=== PATIENT | male | born 1955 | race Caucasian/White ===

== ENCOUNTER 2017-05-13 17:25 | Observation (INO) | payer MEDICARE, SELFPAY ==
[~2017-05-13] VITALS: Ht 177.8 cm; Wt 128.0 kg
[~2017-05-13 17:25] MED LIST: ASPI81CH PO; ATEN25 PO; ATEN50 PO; ATENOLOL; BLOOD PRESSURE MED; Bactrim Ds Tab1 EACH PO; CIPR500 PO; CLON1 PO; CYCL10 PO; Cipro500 MG PO; DIAZ5 PO; DIPATR PO; ENALAPRIL; FISH1000 PO; Flomax0.4 MG PO; GABA300; GABA300 PO; GLIP10 PO; GLIP5 PO; GLUCOPHAGE; HYDACE10B PO; HYDACE5 PO; HYDACE5325 PO; HYDCHL25 PO; HYDMOR2 PO; HYDRA50 PO; Hygroton50 MG PO; INSULANPEN SC; KETO10 PO; Klonopin PO; LISHYD2012 PO; LISI20 PO; LISI5 PO; LISINOPRIL/HCTZ; LOVA20 PO; LOVASTATIN; MELO7.5; METF500 PO; METF500C PO; METO50 PO; METOPROLOL; NEBI10 PO; Novolog100 UNIT/1 SC; OMEP20ER PO; ONDA4 PO; OXYACE5T PO; OXYACE7.5T PO; OXYCONTIN; POTCHL10ER; POTCIT10; POTCIT10 PO; PRED20 PO; PROC10 PO; PROM25 PO; Percocet 5-3251 EACH PO; SERT100 PO; TAMS.4ER PO; TRAM50; TRAM50 PO; TRAZ50 PO; TRESIBA FL100 UNIT/1; Ultram50 MG PO; [UNRECOGNIZED DRUG - OTHER]; [UNRECOGNIZED DRUG - OTHER]; metformin
[2017-05-13 18:46] LABS: BASOPHILS ABSOLUTE AUTO 0.02 K/mm3 (0.00-0.23); BASOPHILS PERCENT AUTO 0 % (0-2); EOSINOPHILS ABSOLUTE AUTO 0.63 K/mm3 (0.00-0.68); EOSINOPHILS PERCENT AUTO 6 % (0-6); Hematocrit 39.4 % (37.0-53.0); IMMATURE GRAN ABSOLUTE AUTO 0.06 K/mm3 (0.00-0.10); IMMATURE GRAN PERCENT AUTO 1 % (0-1); LYMPHOCYTES ABSOLUTE AUTO 2.42 K/mm3 (0.84-5.20); LYMPHOCYTES PERCENT AUTO 22 % (21-46); MONOCYTES ABSOLUTE AUTO 0.94 K/mm3 (0.16-1.47); MONOCYTES PERCENT AUTO 9 % (4-13); Mean Corpuscular HGB 28.9 pg (26.0-34.0); Mean Corpuscular Volume 88 fL (80-100); Mean Platelet Volume 9.3 fL (9.1-12.4); NEUTROPHILS ABSOLUTE AUTO 6.94 K/mm3 (1.96-9.15); NEUTROPHILS PERCENT AUTO 63 % (41-73); Platelet Count 414 K/mm3 (150-400); RDW Coefficient Variation 13.1 % (11.7-14.2); RDW Standard Deviation 42.4 fL (35.1-46.3); White Blood Cell Count 11.01 K/mm3 (4.00-11.30)
[2017-05-13 18:47] LABS: Source, Urine Clean Catch
[2017-05-13] MEDS ORDERED: TRESIBA FL100 UNIT/1 SC (18:48)
[2017-05-13 18:55] LABS: Appearance, Urine Clear (Clear); Bilirubin, Urine Neg (Neg); Blood, Urine Neg (Neg); Color, Urine Yellow (P-Yellow); Glucose Qualitative, Urine Neg (Neg); Ketones, Urine Neg (Neg); Leukocyte Esterase, Urine Neg (Neg); Nitrite, Urine Neg (Neg); Protein, Urine Neg (Neg); Specific Gravity, Urine 1.015 (1.003-1.022); Urobilinogen, Urine NORM (Normal)
[2017-05-13 19:00] LABS: Alanine Aminotransfer (ALT/SGP 29 U/L (12-78); Albumin, Blood 3.4 g/dL (3.4-5.0); Albumin/Globulin Ratio 0.8 (0.8-1.8); Alk Phos 101 U/L (50-136); Anion Gap 12 mmol/L (6-16); Aspartate Aminotrans (AST/SGOT 12 U/L (12-37); Bilirubin, Total 0.2 mg/dL (0.1-1.0); Blood Urea Nitrogen 15 mg/dL (8-24); CO2, Blood 22 mmol/L (21-32); Calcium, Blood 8.9 mg/dL (8.5-10.1); Chloride, Blood 105 mmol/L (98-108); Globulin, Blood 4.3 g/dL (2.2-4.0); Glomerular Filtration Rate >60 (60-); Glucose, Blood 117 mg/dL (70-99); Potassium, Blood 3.4 mmol/L (3.5-5.5); Sodium, Blood 139 mmol/L (136-145); Total Protein, Blood 7.7 g/dL (6.4-8.2); Troponin I <0.015 ng/mL (0.000-0.040)
[2017-05-13 20:34] LABS: U Amphetamine Screen Not Detected; U Barbituate Screen Not Detected; U Benzodiazapine Screen Not Detected; U Buprenorphine Screen Not Detected; U Cannabinoids Screen Not Detected; U Cocaine Screen Not Detected; U Methadone Screen Not Detected; U Methamphetamine Screen Not Detected; U Opiates Screen DETECTED; U Oxycodone Screen Not Detected; U Phencyclidine Screen Not Detected; U Propoxyphene Screen Not Detected
[2017-05-14 04:34] LABS: BASOPHILS ABSOLUTE AUTO 0.01 K/mm3 (0.00-0.23); BASOPHILS PERCENT AUTO 0 % (0-2); EOSINOPHILS ABSOLUTE AUTO 0.74 K/mm3 (0.00-0.68); EOSINOPHILS PERCENT AUTO 7 % (0-6); Hematocrit 37.9 % (37.0-53.0); Hemoglobin 12.4 g/dL (13.5-17.5); IMMATURE GRAN ABSOLUTE AUTO 0.05 K/mm3 (0.00-0.10); IMMATURE GRAN PERCENT AUTO 1 % (0-1); LYMPHOCYTES ABSOLUTE AUTO 2.92 K/mm3 (0.84-5.20); LYMPHOCYTES PERCENT AUTO 27 % (21-46); MONOCYTES ABSOLUTE AUTO 0.96 K/mm3 (0.16-1.47); MONOCYTES PERCENT AUTO 9 % (4-13); Mean Corpuscular HGB 29.4 pg (26.0-34.0); Mean Corpuscular HGB Conc 32.7 g/dL (31.5-36.5); Mean Corpuscular Volume 90 fL (80-100); Mean Platelet Volume 9.1 fL (9.1-12.4); NEUTROPHILS ABSOLUTE AUTO 6.26 K/mm3 (1.96-9.15); NEUTROPHILS PERCENT AUTO 57 % (41-73); Platelet Count 390 K/mm3 (150-400); RDW Coefficient Variation 13.2 % (11.7-14.2); RDW Standard Deviation 43.2 fL (35.1-46.3); Red Blood Cell Count 4.22 M/mm3 (4.30-5.90); White Blood Cell Count 10.94 K/mm3 (4.00-11.30)
[2017-05-14 05:00] LABS: Alanine Aminotransfer (ALT/SGP 26 U/L (12-78); Albumin, Blood 3.2 g/dL (3.4-5.0); Albumin/Globulin Ratio 0.8 (0.8-1.8); Alk Phos 91 U/L (50-136); Anion Gap 8 mmol/L (6-16); Aspartate Aminotrans (AST/SGOT 11 U/L (12-37); Bilirubin, Total 0.3 mg/dL (0.1-1.0); Blood Urea Nitrogen 13 mg/dL (8-24); Bun/Creatinine Ratio 10.8 (12.0-20.0); CO2, Blood 27 mmol/L (21-32); Calcium, Blood 8.7 mg/dL (8.5-10.1); Chloride, Blood 106 mmol/L (98-108); Globulin, Blood 3.9 g/dL (2.2-4.0); Glomerular Filtration Rate >60 (60-); Glucose, Blood 93 mg/dL (70-99); Potassium, Blood 3.4 mmol/L (3.5-5.5); Sodium, Blood 141 mmol/L (136-145); Total Protein, Blood 7.1 g/dL (6.4-8.2)
[2017-05-15 04:03] LABS: BASOPHILS ABSOLUTE AUTO 0.03 K/mm3 (0.00-0.23); BASOPHILS PERCENT AUTO 0 % (0-2); EOSINOPHILS ABSOLUTE AUTO 0.77 K/mm3 (0.00-0.68); EOSINOPHILS PERCENT AUTO 7 % (0-6); Hematocrit 36.3 % (37.0-53.0); IMMATURE GRAN ABSOLUTE AUTO 0.07 K/mm3 (0.00-0.10); IMMATURE GRAN PERCENT AUTO 1 % (0-1); LYMPHOCYTES ABSOLUTE AUTO 2.79 K/mm3 (0.84-5.20); LYMPHOCYTES PERCENT AUTO 25 % (21-46); MONOCYTES ABSOLUTE AUTO 0.92 K/mm3 (0.16-1.47); MONOCYTES PERCENT AUTO 8 % (4-13); Mean Corpuscular HGB 29.3 pg (26.0-34.0); Mean Corpuscular HGB Conc 33.1 g/dL (31.5-36.5); Mean Corpuscular Volume 89 fL (80-100); Mean Platelet Volume 9.3 fL (9.1-12.4); NEUTROPHILS ABSOLUTE AUTO 6.56 K/mm3 (1.96-9.15); NEUTROPHILS PERCENT AUTO 59 % (41-73); Platelet Count 350 K/mm3 (150-400); RDW Coefficient Variation 13.2 % (11.7-14.2); RDW Standard Deviation 42.7 fL (35.1-46.3); Red Blood Cell Count 4.09 M/mm3 (4.30-5.90); White Blood Cell Count 11.14 K/mm3 (4.00-11.30)
[2017-05-15 04:24] LABS: Alanine Aminotransfer (ALT/SGP 22 U/L (12-78); Albumin, Blood 2.8 g/dL (3.4-5.0); Albumin/Globulin Ratio 0.8 (0.8-1.8); Alk Phos 83 U/L (50-136); Anion Gap 6 mmol/L (6-16); Aspartate Aminotrans (AST/SGOT 8 U/L (12-37); Bilirubin, Total 0.2 mg/dL (0.1-1.0); Blood Urea Nitrogen 16 mg/dL (8-24); Bun/Creatinine Ratio 13.6 (12.0-20.0); CO2, Blood 28 mmol/L (21-32); Calcium, Blood 8.3 mg/dL (8.5-10.1); Chloride, Blood 106 mmol/L (98-108); Creatinine, Blood 1.18 mg/dL (0.60-1.20); Globulin, Blood 3.7 g/dL (2.2-4.0); Glomerular Filtration Rate >60 (60-); Glucose, Blood 144 mg/dL (70-99); Potassium, Blood 3.4 mmol/L (3.5-5.5); Sodium, Blood 140 mmol/L (136-145); Total Protein, Blood 6.5 g/dL (6.4-8.2)
[2017-05-16 06:16] LABS: BASOPHILS ABSOLUTE AUTO 0.05 K/mm3 (0.00-0.23); BASOPHILS PERCENT AUTO 1 % (0-2); EOSINOPHILS ABSOLUTE AUTO 0.91 K/mm3 (0.00-0.68); EOSINOPHILS PERCENT AUTO 8 % (0-6); Hematocrit 38.3 % (37.0-53.0); Hemoglobin 12.6 g/dL (13.5-17.5); IMMATURE GRAN ABSOLUTE AUTO 0.08 K/mm3 (0.00-0.10); IMMATURE GRAN PERCENT AUTO 1 % (0-1); LYMPHOCYTES ABSOLUTE AUTO 3.03 K/mm3 (0.84-5.20); LYMPHOCYTES PERCENT AUTO 28 % (21-46); MONOCYTES ABSOLUTE AUTO 0.99 K/mm3 (0.16-1.47); MONOCYTES PERCENT AUTO 9 % (4-13); Mean Corpuscular HGB 29.4 pg (26.0-34.0); Mean Corpuscular HGB Conc 32.9 g/dL (31.5-36.5); Mean Corpuscular Volume 89 fL (80-100); Mean Platelet Volume 9.4 fL (9.1-12.4); NEUTROPHILS ABSOLUTE AUTO 5.73 K/mm3 (1.96-9.15); NEUTROPHILS PERCENT AUTO 53 % (41-73); Platelet Count 359 K/mm3 (150-400); RDW Coefficient Variation 13.2 % (11.7-14.2); Red Blood Cell Count 4.29 M/mm3 (4.30-5.90); White Blood Cell Count 10.79 K/mm3 (4.00-11.30)
[2017-05-16 06:36] LABS: Alanine Aminotransfer (ALT/SGP 20 U/L (12-78); Albumin/Globulin Ratio 0.8 (0.8-1.8); Alk Phos 84 U/L (50-136); Anion Gap 8 mmol/L (6-16); Aspartate Aminotrans (AST/SGOT 9 U/L (12-37); Bilirubin, Total 0.3 mg/dL (0.1-1.0); Blood Urea Nitrogen 17 mg/dL (8-24); Bun/Creatinine Ratio 16.5 (12.0-20.0); CO2, Blood 28 mmol/L (21-32); Calcium, Blood 8.8 mg/dL (8.5-10.1); Chloride, Blood 105 mmol/L (98-108); Creatinine, Blood 1.03 mg/dL (0.60-1.20); Globulin, Blood 3.8 g/dL (2.2-4.0); Glomerular Filtration Rate >60 (60-); Glucose, Blood 164 mg/dL (70-99); Potassium, Blood 3.7 mmol/L (3.5-5.5); Sodium, Blood 141 mmol/L (136-145); Total Protein, Blood 6.8 g/dL (6.4-8.2)
[2017-05-16] MEDS ORDERED: ASPI81CH PO (17:30)
[2017-05-16] MEDS ORDERED: AMLO10 PO (17:30)
[2017-05-16] MEDS ORDERED: PANT40 PO (17:31)
[2017-05-16] MEDS ORDERED: EXEN5PENI SC (17:31)
[2017-06-01] MEDS ORDERED: EXEN5PENI SC (13:37)
[2017-06-01] MEDS ORDERED: CYCL10 PO (13:49)
[2017-06-01] MEDS ORDERED: FISH OIL 1,0001 EAC1 PO (13:50)
[2017-06-01] MEDS ORDERED: ALBU90OI INH (13:51)
[2017-06-01] MEDS ORDERED: CHOL10002 PO (13:53)
[2017-06-27] MEDS ORDERED: LIVALO2 MG PO (10:39)
[2017-06-27] MEDS ORDERED: CARV25 PO (10:39)
[2017-06-27] MEDS ORDERED: METF500 PO (10:40)
[2017-06-27] MEDS ORDERED: Humalog100 UNIT/1 SC (10:40)
[2017-06-27] MEDS ORDERED: ONDA8 PO (10:41)
[2017-06-27] MEDS ORDERED: Norco 10-325 T1 EACH PO (10:43)
[2017-06-30] MEDS ORDERED: ACET325 PO (10:04)
[2017-06-30] MEDS ORDERED: LEVFLO500 PO (10:05)
[2018-01-23] MEDS ORDERED: CYCL10 PO (02:07)
== END 2017-05-16 17:47 | disposition home or self-care (01) ==
LOC: ER 17:25 → SURS 17:26
PROVIDERS: Emergency Medicine; Internal Medicine
DX: K80.20 Calculus of gallbladder without cholecystitis without obstruction (principal); E11.9 Type 2 diabetes mellitus without complications; I10 Essential (primary) hypertension; E66.01 Morbid (severe) obesity due to excess calories; G47.33 Obstructive sleep apnea (adult) (pediatric); J44.9 Chronic obstructive pulmonary disease, unspecified; F32.9 Major depressive disorder, single episode, unspecified; R13.10 Dysphagia, unspecified; Z88.8 Allergy status to other drugs, medicaments and biological substances; Z79.4 Long term (current) use of insulin; Z79.891 Long term (current) use of opiate analgesic; Z79.899 Other long term (current) drug therapy; Z90.49 Acquired absence of other specified parts of digestive tract; Z87.442 Personal history of urinary calculi; Z98.890 Other specified postprocedural states; Z79.84 Long term (current) use of oral hypoglycemic drugs; Z68.41 Body mass index [BMI] 40.0-44.9, adult
CPT/HCPCS: 36415; 74018; 74220; 74230; 76705; 80053; 81003; 82947; 83036; 83690; 84443; 84484; 85025; 92611; 93005; 93010; 94660; 94762; 96361; 96365; 96366; 96372; 96375; 99285; C9113; G0378; G8996; G8997; G8998; J1170; J1650; J2405; J2543; J7030

== ENCOUNTER 2017-05-24 00:22 | Emergency (ER) | payer MEDICARE, SELFPAY ==
[~2017-05-24] VITALS: Ht 177.8 cm; Wt 129.7 kg
[~2017-05-24 00:22] MED LIST changes: +AMLO10 PO; +EXEN5PENI SC; +PANT40 PO; +TRESIBA FL100 UNIT/1 SC
[2017-05-24 02:42] LABS: BASOPHILS ABSOLUTE AUTO 0.08 K/mm3 (0.00-0.23); BASOPHILS PERCENT AUTO 1 % (0-2); EOSINOPHILS ABSOLUTE AUTO 0.59 K/mm3 (0.00-0.68); EOSINOPHILS PERCENT AUTO 6 % (0-6); Hematocrit 37.3 % (37.0-53.0); Hemoglobin 12.5 g/dL (13.5-17.5); IMMATURE GRAN ABSOLUTE AUTO 0.03 K/mm3 (0.00-0.10); IMMATURE GRAN PERCENT AUTO 0 % (0-1); LYMPHOCYTES ABSOLUTE AUTO 2.95 K/mm3 (0.84-5.20); LYMPHOCYTES PERCENT AUTO 31 % (21-46); MONOCYTES ABSOLUTE AUTO 0.87 K/mm3 (0.16-1.47); MONOCYTES PERCENT AUTO 9 % (4-13); Mean Corpuscular HGB 29.4 pg (26.0-34.0); Mean Corpuscular HGB Conc 33.5 g/dL (31.5-36.5); Mean Corpuscular Volume 88 fL (80-100); Mean Platelet Volume 9.7 fL (9.1-12.4); NEUTROPHILS ABSOLUTE AUTO 4.99 K/mm3 (1.96-9.15); NEUTROPHILS PERCENT AUTO 53 % (41-73); Platelet Count 353 K/mm3 (150-400); RDW Standard Deviation 41.2 fL (35.1-46.3); Red Blood Cell Count 4.25 M/mm3 (4.30-5.90); White Blood Cell Count 9.51 K/mm3 (4.00-11.30)
[2017-05-24 03:00] LABS: Alanine Aminotransfer (ALT/SGP 25 U/L (12-78); Albumin, Blood 3.4 g/dL (3.4-5.0); Albumin/Globulin Ratio 0.8 (0.8-1.8); Alk Phos 86 U/L (50-136); Anion Gap 7 mmol/L (6-16); Aspartate Aminotrans (AST/SGOT 12 U/L (12-37); Bilirubin, Total 0.2 mg/dL (0.1-1.0); Blood Urea Nitrogen 22 mg/dL (8-24); CO2, Blood 27 mmol/L (21-32); Calcium, Blood 8.4 mg/dL (8.5-10.1); Chloride, Blood 105 mmol/L (98-108); Globulin, Blood 4.3 g/dL (2.2-4.0); Glomerular Filtration Rate >60 (60-); Glucose, Blood 156 mg/dL (70-99); Potassium, Blood 3.5 mmol/L (3.5-5.5); Sodium, Blood 139 mmol/L (136-145); Total Protein, Blood 7.7 g/dL (6.4-8.2)
[2017-06-01] MEDS ORDERED: EXEN5PENI SC (13:37)
[2017-06-01] MEDS ORDERED: CYCL10 PO (13:49)
[2017-06-01] MEDS ORDERED: FISH OIL 1,0001 EAC1 PO (13:50)
[2017-06-01] MEDS ORDERED: ALBU90OI INH (13:51)
[2017-06-01] MEDS ORDERED: CHOL10002 PO (13:53)
[2017-06-27] MEDS ORDERED: CARV25 PO (10:39)
[2017-06-27] MEDS ORDERED: LIVALO2 MG PO (10:39)
[2017-06-27] MEDS ORDERED: Humalog100 UNIT/1 SC (10:40)
[2017-06-27] MEDS ORDERED: METF500 PO (10:40)
[2017-06-27] MEDS ORDERED: ONDA8 PO (10:41)
[2017-06-27] MEDS ORDERED: Norco 10-325 T1 EACH PO (10:43)
[2017-06-30] MEDS ORDERED: ACET325 PO (10:04)
[2017-06-30] MEDS ORDERED: LEVFLO500 PO (10:05)
[2018-01-23] MEDS ORDERED: CYCL10 PO (02:07)
== END 2017-05-24 04:02 | disposition home or self-care (01) ==
LOC: ER 00:22
PROVIDERS: Emergency Medicine
DX: K59.00 Constipation, unspecified (principal); Z88.8 Allergy status to other drugs, medicaments and biological substances; Z79.899 Other long term (current) drug therapy; Z79.84 Long term (current) use of oral hypoglycemic drugs; Z79.4 Long term (current) use of insulin; Z79.82 Long term (current) use of aspirin; I10 Essential (primary) hypertension; F43.10 Post-traumatic stress disorder, unspecified; E11.9 Type 2 diabetes mellitus without complications
CPT/HCPCS: 36415; 80053; 83690; 85025; 96374; 99283; J2405

== ENCOUNTER 2017-05-31 03:36 | Emergency (ER) | payer MEDICARE, SELFPAY ==
[2017-05-31 06:16] LABS: Albumin, Blood 3.6 g/dL (3.4-5.0); Albumin/Globulin Ratio 0.8 (0.8-1.8); Bilirubin, Total 0.2 mg/dL (0.1-1.0); Bun/Creatinine Ratio 32.6 (12.0-20.0); Calcium, Blood 9.3 mg/dL (8.5-10.1); Creatinine, Blood 1.29 mg/dL (0.60-1.20); Globulin, Blood 4.4 g/dL (2.2-4.0); Potassium, Blood 3.3 mmol/L (3.5-5.5)
[2017-05-31 06:22] LABS: BASOPHILS ABSOLUTE AUTO 0.05 K/mm3 (0.00-0.23); BASOPHILS PERCENT AUTO 1 % (0-2); EOSINOPHILS ABSOLUTE AUTO 1.48 K/mm3 (0.00-0.68); EOSINOPHILS PERCENT AUTO 14 % (0-6); Hematocrit 37.6 % (37.0-53.0); Hemoglobin 12.4 g/dL (13.5-17.5); IMMATURE GRAN ABSOLUTE AUTO 0.03 K/mm3 (0.00-0.10); IMMATURE GRAN PERCENT AUTO 0 % (0-1); LYMPHOCYTES ABSOLUTE AUTO 1.97 K/mm3 (0.84-5.20); LYMPHOCYTES PERCENT AUTO 19 % (21-46); MONOCYTES PERCENT AUTO 8 % (4-13); Mean Corpuscular Volume 88 fL (80-100); Mean Platelet Volume 9.5 fL (9.1-12.4); NEUTROPHILS ABSOLUTE AUTO 6.29 K/mm3 (1.96-9.15); NEUTROPHILS PERCENT AUTO 59 % (41-73); Platelet Count 420 K/mm3 (150-400); RDW Coefficient Variation 12.9 % (11.7-14.2); RDW Standard Deviation 41.4 fL (35.1-46.3); Red Blood Cell Count 4.28 M/mm3 (4.30-5.90); White Blood Cell Count 10.62 K/mm3 (4.00-11.30)
[2017-06-01] MEDS ORDERED: EXEN5PENI SC (13:37)
[2017-06-01] MEDS ORDERED: CYCL10 PO (13:49)
[2017-06-01] MEDS ORDERED: FISH OIL 1,0001 EAC1 PO (13:50)
[2017-06-01] MEDS ORDERED: ALBU90OI INH (13:51)
[2017-06-01] MEDS ORDERED: CHOL10002 PO (13:53)
[2017-06-27] MEDS ORDERED: CARV25 PO (10:39)
[2017-06-27] MEDS ORDERED: LIVALO2 MG PO (10:39)
[2017-06-27] MEDS ORDERED: METF500 PO (10:40)
[2017-06-27] MEDS ORDERED: Humalog100 UNIT/1 SC (10:40)
[2017-06-27] MEDS ORDERED: ONDA8 PO (10:41)
[2017-06-27] MEDS ORDERED: Norco 10-325 T1 EACH PO (10:43)
[2017-06-30] MEDS ORDERED: ACET325 PO (10:04)
[2017-06-30] MEDS ORDERED: LEVFLO500 PO (10:05)
[2018-01-23] MEDS ORDERED: CYCL10 PO (02:07)
== END 2017-05-31 05:49 | disposition home or self-care (01) ==
LOC: ER 03:36
DX: R10.9 Unspecified abdominal pain (principal); R10.13 Epigastric pain; K82.8 Other specified diseases of gallbladder
CPT/HCPCS: 78227; 80053; 83690; 85025; 93005; 93010; 96361; 96374; 99283; A9537; J0295; J2405; J2805; J7030

== ENCOUNTER 2017-06-05 05:33 | Day surgery (SDC) | payer MEDICARE, SELFPAY ==
[~2017-06-05] VITALS: Ht 177.8 cm; Wt 128.8 kg
[~2017-06-05 05:33] MED LIST changes: +ALBU90OI INH; +CHOL10002; +FISH OIL 1,0001 EAC1 PO
== END 2017-06-05 23:07 | disposition home or self-care (01) ==
LOC: ORSCMMR 05:33 → ORD 08:00 → ORSCMMR 23:07
PROVIDERS: Internal Medicine Gastroenterology
PROC: 0DB88ZX Excision of Small Intestine, Via Natural or Artificial Opening Endoscopic, Diagnostic (ICD-10-PCS; principal; 2017-06-05 08:00)
PROC: 0DB68ZX Excision of Stomach, Via Natural or Artificial Opening Endoscopic, Diagnostic (ICD-10-PCS; principal; 2017-06-05 08:00)
PROC: 0DB48ZX Excision of Esophagogastric Junction, Via Natural or Artificial Opening Endoscopic, Diagnostic (ICD-10-PCS; principal; 2017-06-05 08:00)
PROC: 0DBN8ZX Excision of Sigmoid Colon, Via Natural or Artificial Opening Endoscopic, Diagnostic (ICD-10-PCS; principal; 2017-06-05 08:00)
PROC: 0D758ZZ Dilation of Esophagus, Via Natural or Artificial Opening Endoscopic (ICD-10-PCS; principal; 2017-06-05 08:00)
PROC: 0DBE8ZX Excision of Large Intestine, Via Natural or Artificial Opening Endoscopic, Diagnostic (ICD-10-PCS; principal; 2017-06-05 08:00)
DX: R13.14 Dysphagia, pharyngoesophageal phase (principal); K21.9 Gastro-esophageal reflux disease without esophagitis; R14.0 Abdominal distension (gaseous); D12.5 Benign neoplasm of sigmoid colon; K29.70 Gastritis, unspecified, without bleeding; Z86.010 Personal history of colon polyps; E11.9 Type 2 diabetes mellitus without complications; G47.33 Obstructive sleep apnea (adult) (pediatric); I10 Essential (primary) hypertension; E78.00 Pure hypercholesterolemia, unspecified; E66.01 Morbid (severe) obesity due to excess calories; Z68.41 Body mass index [BMI] 40.0-44.9, adult; Z79.899 Other long term (current) drug therapy; Z79.4 Long term (current) use of insulin
CPT/HCPCS: 82947; 88305; 88342; C1726; J2250; J2405; J3010; J7120

== ENCOUNTER 2017-06-23 22:57 | Emergency (ER) | payer MEDICARE, SELFPAY ==
[~2017-06-23] VITALS: Ht 177.8 cm; Wt 131.5 kg
[2017-06-23 23:26] LABS: BASOPHILS ABSOLUTE AUTO 0.03 K/mm3 (0.00-0.23); BASOPHILS PERCENT AUTO 0 % (0-2); EOSINOPHILS PERCENT AUTO 4 % (0-6); Hematocrit 35.8 % (37.0-53.0); Hemoglobin 11.8 g/dL (13.5-17.5); IMMATURE GRAN ABSOLUTE AUTO 0.02 K/mm3 (0.00-0.10); IMMATURE GRAN PERCENT AUTO 0 % (0-1); LYMPHOCYTES ABSOLUTE AUTO 2.55 K/mm3 (0.84-5.20); LYMPHOCYTES PERCENT AUTO 35 % (21-46); MONOCYTES ABSOLUTE AUTO 0.61 K/mm3 (0.16-1.47); MONOCYTES PERCENT AUTO 8 % (4-13); Mean Corpuscular HGB 29.4 pg (26.0-34.0); Mean Corpuscular Volume 89 fL (80-100); Mean Platelet Volume 9.6 fL (9.1-12.4); NEUTROPHILS ABSOLUTE AUTO 3.77 K/mm3 (1.96-9.15); NEUTROPHILS PERCENT AUTO 52 % (41-73); Platelet Count 416 K/mm3 (150-400); RDW Coefficient Variation 12.8 % (11.7-14.2); RDW Standard Deviation 42.2 fL (35.1-46.3); Red Blood Cell Count 4.01 M/mm3 (4.30-5.90); White Blood Cell Count 7.28 K/mm3 (4.00-11.30)
[2017-06-23 23:46] LABS: Alanine Aminotransfer (ALT/SGP 26 U/L (12-78); Albumin, Blood 3.3 g/dL (3.4-5.0); Albumin/Globulin Ratio 0.8 (0.8-1.8); Alk Phos 85 U/L (50-136); Anion Gap 7 mmol/L (6-16); Aspartate Aminotrans (AST/SGOT 15 U/L (12-37); Bilirubin, Total 0.2 mg/dL (0.1-1.0); Blood Urea Nitrogen 20 mg/dL (8-24); Bun/Creatinine Ratio 20.7 (12.0-20.0); CO2, Blood 29 mmol/L (21-32); Calcium, Blood 8.5 mg/dL (8.5-10.1); Chloride, Blood 106 mmol/L (98-108); Creatinine, Blood 0.97 mg/dL (0.60-1.20); Glomerular Filtration Rate >60 (60-); Glucose, Blood 180 mg/dL (70-99); Potassium, Blood 3.4 mmol/L (3.5-5.5); Sodium, Blood 142 mmol/L (136-145); Total Protein, Blood 7.3 g/dL (6.4-8.2); Troponin I <0.015 ng/mL (0.000-0.040)
[2017-06-24] MEDS ORDERED: Valium5 MG PO (01:37)
== END 2017-06-24 02:01 | disposition home or self-care (01) ==
LOC: ER 22:57
PROVIDERS: Emergency Medicine
DX: R07.89 Other chest pain (principal); E11.65 Type 2 diabetes mellitus with hyperglycemia; M62.830 Muscle spasm of back; I10 Essential (primary) hypertension; F41.0 Panic disorder [episodic paroxysmal anxiety]; Z87.442 Personal history of urinary calculi; Z88.8 Allergy status to other drugs, medicaments and biological substances; Z91.048 Other nonmedicinal substance allergy status; Z79.899 Other long term (current) drug therapy; Z79.4 Long term (current) use of insulin; Z79.82 Long term (current) use of aspirin
CPT/HCPCS: 36415; 71046; 80053; 84484; 85025; 93005; 93010; 96360; 99283; J7030

== ENCOUNTER 2017-06-29 07:11 | Day surgery (SDC) | payer MEDICARE, SELFPAY ==
[~2017-06-29] VITALS: Ht 177.8 cm; Wt 131.5 kg
[~2017-06-29 07:11] MED LIST changes: +CARV25 PO; -CHOL10002; +CHOL10002 PO; +Humalog100 UNIT/1 SC; +LIVALO2 MG PO; +Norco 10-325 T1 EACH PO; +ONDA8 PO; +Valium5 MG PO
[2017-06-30] MEDS ORDERED: ACET325 PO ×2 (10:04)
[2017-06-30] MEDS ORDERED: LEVFLO500 PO ×2 (10:05)
== END 2017-06-29 22:40 | disposition home or self-care (01) ==
LOC: ORSCMMR 07:11 → ORD 08:45 → ORSCMMR 22:40
PROVIDERS: Surgery
PROC: 0FT44ZZ Resection of Gallbladder, Percutaneous Endoscopic Approach (ICD-10-PCS; principal; 2017-06-29 08:45)
DX: K80.10 Calculus of gallbladder with chronic cholecystitis without obstruction (principal); K82.8 Other specified diseases of gallbladder; I10 Essential (primary) hypertension; G47.33 Obstructive sleep apnea (adult) (pediatric); K21.9 Gastro-esophageal reflux disease without esophagitis; K76.0 Fatty (change of) liver, not elsewhere classified; E78.00 Pure hypercholesterolemia, unspecified; E11.42 Type 2 diabetes mellitus with diabetic polyneuropathy; E66.01 Morbid (severe) obesity due to excess calories; Z68.41 Body mass index [BMI] 40.0-44.9, adult; Z79.899 Other long term (current) drug therapy; Z79.82 Long term (current) use of aspirin; Z79.4 Long term (current) use of insulin
CPT/HCPCS: 82947; 88304; C1729; J0690; J1100; J1885; J2250; J2405; J2710; J3010; J7120

== ENCOUNTER 2017-06-29 18:39 | Observation (INO) | payer MEDICARE, SELFPAY ==
[~2017-06-29] VITALS: Ht 177.8 cm; Wt 135.8 kg
[2017-06-29 19:02] LABS: BASOPHILS ABSOLUTE AUTO 0.01 K/mm3 (0.00-0.23); BASOPHILS PERCENT AUTO 0 % (0-2); EOSINOPHILS PERCENT AUTO 0 % (0-6); Hematocrit 36.2 % (37.0-53.0); IMMATURE GRAN ABSOLUTE AUTO 0.06 K/mm3 (0.00-0.10); IMMATURE GRAN PERCENT AUTO 0 % (0-1); LYMPHOCYTES ABSOLUTE AUTO 1.03 K/mm3 (0.84-5.20); LYMPHOCYTES PERCENT AUTO 7 % (21-46); MONOCYTES ABSOLUTE AUTO 0.34 K/mm3 (0.16-1.47); MONOCYTES PERCENT AUTO 2 % (4-13); Mean Corpuscular HGB 29.9 pg (26.0-34.0); Mean Corpuscular HGB Conc 33.1 g/dL (31.5-36.5); Mean Corpuscular Volume 90 fL (80-100); Mean Platelet Volume 9.7 fL (9.1-12.4); NEUTROPHILS ABSOLUTE AUTO 12.46 K/mm3 (1.96-9.15); NEUTROPHILS PERCENT AUTO 90 % (41-73); Platelet Count 446 K/mm3 (150-400); RDW Coefficient Variation 12.8 % (11.7-14.2); RDW Standard Deviation 42.1 fL (35.1-46.3); Red Blood Cell Count 4.02 M/mm3 (4.30-5.90)
[2017-06-29 19:26] LABS: Alanine Aminotransfer (ALT/SGP 30 U/L (12-78); Albumin, Blood 3.5 g/dL (3.4-5.0); Albumin/Globulin Ratio 0.9 (0.8-1.8); Alk Phos 95 U/L (50-136); Anion Gap 8 mmol/L (6-16); Aspartate Aminotrans (AST/SGOT 20 U/L (12-37); Bilirubin, Total 0.2 mg/dL (0.1-1.0); Blood Urea Nitrogen 30 mg/dL (8-24); Bun/Creatinine Ratio 15.9 (12.0-20.0); CO2, Blood 25 mmol/L (21-32); Calcium, Blood 8.4 mg/dL (8.5-10.1); Chloride, Blood 101 mmol/L (98-108); Creatinine, Blood 1.89 mg/dL (0.60-1.20); Glomerular Filtration Rate 39 (60-); Glucose, Blood 436 mg/dL (70-99); Potassium, Blood 4.4 mmol/L (3.5-5.5); Sodium, Blood 134 mmol/L (136-145); Total Protein, Blood 7.5 g/dL (6.4-8.2); Troponin I <0.015 ng/mL (0.000-0.040)
[2017-06-30 00:18] LABS: Bilirubin, Urine Neg (Neg); Blood, Urine Neg (Neg); Glucose Qualitative, Urine 4+ (Neg); Ketones, Urine 1+ (Neg); Leukocyte Esterase, Urine Neg (Neg); Nitrite, Urine Neg (Neg); Protein, Urine Neg (Neg); Source, Urine Clean Catch; Specific Gravity, Urine 1.005 (1.003-1.022); Urobilinogen, Urine NORM (Normal); pH, Urine 6.5 (5.0-8.0)
[2017-06-30 00:23] LABS: Appearance, Urine Clear (Clear); Color, Urine Yellow (P-Yellow)
[2017-06-30 04:53] LABS: BASOPHILS ABSOLUTE AUTO 0.01 K/mm3 (0.00-0.23); BASOPHILS PERCENT AUTO 0 % (0-2); EOSINOPHILS PERCENT AUTO 0 % (0-6); Hematocrit 33.6 % (37.0-53.0); Hemoglobin 11.4 g/dL (13.5-17.5); IMMATURE GRAN ABSOLUTE AUTO 0.09 K/mm3 (0.00-0.10); IMMATURE GRAN PERCENT AUTO 1 % (0-1); LYMPHOCYTES ABSOLUTE AUTO 1.97 K/mm3 (0.84-5.20); LYMPHOCYTES PERCENT AUTO 12 % (21-46); MONOCYTES ABSOLUTE AUTO 1.42 K/mm3 (0.16-1.47); MONOCYTES PERCENT AUTO 9 % (4-13); Mean Corpuscular HGB 29.2 pg (26.0-34.0); Mean Corpuscular HGB Conc 33.9 g/dL (31.5-36.5); NEUTROPHILS ABSOLUTE AUTO 13.08 K/mm3 (1.96-9.15); NEUTROPHILS PERCENT AUTO 79 % (41-73); RDW Coefficient Variation 12.9 % (11.7-14.2); White Blood Cell Count 16.57 K/mm3 (4.00-11.30)
[2017-06-30 04:55] LABS: Mean Corpuscular Volume 86 fL (80-100); Mean Platelet Volume 10.3 fL (9.1-12.4); Platelet Count 297 K/mm3 (150-400)
[2017-06-30 05:04] LABS: Albumin/Globulin Ratio 0.8 (0.8-1.8); Bilirubin, Total 0.2 mg/dL (0.1-1.0); Bun/Creatinine Ratio 18.8 (12.0-20.0); Calcium, Blood 8.3 mg/dL (8.5-10.1); Creatinine, Blood 1.44 mg/dL (0.60-1.20); Globulin, Blood 3.7 g/dL (2.2-4.0); Potassium, Blood 3.9 mmol/L (3.5-5.5); Total Protein, Blood 6.7 g/dL (6.4-8.2)
[2017-06-30 05:22] LABS: BASOPHILS ABSOLUTE MAN 16.57 K/mm3 (0.00-0.23); BASOPHILS PERCENT MAN 100 % (0-2); EOSINOPHILS PERCENT MAN 0 % (0-6); MONOCYTES PERCENT MAN 0 % (4-13); TOTAL CELLS COUNTED 1
[2017-06-30] MEDS ORDERED: ACET325 PO ×2 (10:04)
[2017-06-30] MEDS ORDERED: LEVFLO500 PO ×2 (10:05)
== END 2017-06-30 11:02 | disposition home or self-care (01) ==
LOC: ER 18:39 → MEDS 18:40 → ENPENDDIS 06-30 09:52 → MEDS 06-30 11:02
PROVIDERS: Emergency Medicine; Internal Medicine
DX: J98.11 Atelectasis (principal); E11.9 Type 2 diabetes mellitus without complications; I10 Essential (primary) hypertension; G47.33 Obstructive sleep apnea (adult) (pediatric); E66.01 Morbid (severe) obesity due to excess calories; G89.29 Other chronic pain; M54.9 Dorsalgia, unspecified; F41.0 Panic disorder [episodic paroxysmal anxiety]; F43.10 Post-traumatic stress disorder, unspecified; Z87.442 Personal history of urinary calculi; Z90.49 Acquired absence of other specified parts of digestive tract; Z88.8 Allergy status to other drugs, medicaments and biological substances; Z79.899 Other long term (current) drug therapy; Z79.82 Long term (current) use of aspirin; Z68.41 Body mass index [BMI] 40.0-44.9, adult
CPT/HCPCS: 36415; 71045; 71260; 74177; 80053; 81003; 82947; 84484; 85025; 93005; 93010; 94660; 94762; 96372; 96376; 99285; G0378; J1650; J2060; J3010; Q9967

== ENCOUNTER 2017-07-07 19:39 | Emergency (ER) | payer MEDICARE, SELFPAY ==
[~2017-07-07] VITALS: Ht 177.8 cm; Wt 127.0 kg
[~2017-07-07 19:39] MED LIST changes: +ACET325 PO; +LEVFLO500 PO
[2017-07-07 20:10] LABS: BASOPHILS ABSOLUTE AUTO 0.05 K/mm3 (0.00-0.23); BASOPHILS PERCENT AUTO 1 % (0-2); EOSINOPHILS PERCENT AUTO 4 % (0-6); Hemoglobin 12.4 g/dL (13.5-17.5); IMMATURE GRAN ABSOLUTE AUTO 0.02 K/mm3 (0.00-0.10); IMMATURE GRAN PERCENT AUTO 0 % (0-1); LYMPHOCYTES ABSOLUTE AUTO 2.49 K/mm3 (0.84-5.20); LYMPHOCYTES PERCENT AUTO 26 % (21-46); MONOCYTES ABSOLUTE AUTO 0.77 K/mm3 (0.16-1.47); MONOCYTES PERCENT AUTO 8 % (4-13); Mean Corpuscular HGB Conc 32.6 g/dL (31.5-36.5); Mean Platelet Volume 9.3 fL (9.1-12.4); NEUTROPHILS ABSOLUTE AUTO 5.94 K/mm3 (1.96-9.15); NEUTROPHILS PERCENT AUTO 62 % (41-73); Platelet Count 410 K/mm3 (150-400); RDW Coefficient Variation 12.8 % (11.7-14.2); RDW Standard Deviation 41.8 fL (35.1-46.3); Red Blood Cell Count 4.27 M/mm3 (4.30-5.90); White Blood Cell Count 9.67 K/mm3 (4.00-11.30)
[2017-07-07 20:13] LABS: Mean Corpuscular Volume 89 fL (80-100)
[2017-07-07 20:35] LABS: Alanine Aminotransfer (ALT/SGP 23 U/L (12-78); Albumin, Blood 3.7 g/dL (3.4-5.0); Albumin/Globulin Ratio 0.9 (0.8-1.8); Alk Phos 108 U/L (50-136); Anion Gap 7 mmol/L (6-16); Aspartate Aminotrans (AST/SGOT 14 U/L (12-37); Bilirubin, Total 0.3 mg/dL (0.1-1.0); Blood Urea Nitrogen 23 mg/dL (8-24); Bun/Creatinine Ratio 18.4 (12.0-20.0); CO2, Blood 27 mmol/L (21-32); Calcium, Blood 8.8 mg/dL (8.5-10.1); Chloride, Blood 109 mmol/L (98-108); Creatinine, Blood 1.25 mg/dL (0.60-1.20); Globulin, Blood 4.2 g/dL (2.2-4.0); Glomerular Filtration Rate >60 (60-); Glucose, Blood 111 mg/dL (70-99); Potassium, Blood 3.5 mmol/L (3.5-5.5); Sodium, Blood 143 mmol/L (136-145); Total Protein, Blood 7.9 g/dL (6.4-8.2); Troponin I <0.015 ng/mL (0.000-0.040)
[2017-07-07 20:48] LABS: Source, Urine Clean Catch
[2017-07-07 20:52] LABS: Appearance, Urine Clear (Clear); Bilirubin, Urine Neg (Neg); Blood, Urine Neg (Neg); Color, Urine Yellow (P-Yellow); Glucose Qualitative, Urine Neg (Neg); Ketones, Urine Neg (Neg); Leukocyte Esterase, Urine Neg (Neg); Nitrite, Urine Neg (Neg); Protein, Urine Neg (Neg); Urobilinogen, Urine NORM (Normal)
[2017-07-07] MEDS ORDERED: ZYRTEC10 M1 PO (20:59)
[2017-07-07] MEDS ORDERED: Prednisone20 MG PO (20:59)
== END 2017-07-07 21:25 | disposition home or self-care (01) ==
LOC: ER 19:39
PROVIDERS: Emergency Medicine
DX: J98.01 Acute bronchospasm (principal); Z88.8 Allergy status to other drugs, medicaments and biological substances; Z88.1 Allergy status to other antibiotic agents; Z91.048 Other nonmedicinal substance allergy status; Z79.4 Long term (current) use of insulin; Z79.899 Other long term (current) drug therapy; Z79.82 Long term (current) use of aspirin; I10 Essential (primary) hypertension; F43.10 Post-traumatic stress disorder, unspecified; E11.9 Type 2 diabetes mellitus without complications
CPT/HCPCS: 36415; 71046; 80053; 81003; 83880; 84484; 85025; 93005; 93010; 99283

== ENCOUNTER 2017-09-22 23:13 | Emergency (ER) | payer OTHER, MEDICARE, SELFPAY ==
[~2017-09-22] VITALS: Ht 175.3 cm; Wt 125.2 kg
[~2017-09-22 23:13] MED LIST changes: +Prednisone20 MG PO; +ZYRTEC10 M1 PO
[2017-09-23 00:26] LABS: BASOPHILS ABSOLUTE AUTO 0.03 K/mm3 (0.00-0.23); BASOPHILS PERCENT AUTO 0 % (0-2); EOSINOPHILS PERCENT AUTO 3 % (0-6); Hematocrit 36.5 % (37.0-53.0); Hemoglobin 12.1 g/dL (13.5-17.5); IMMATURE GRAN ABSOLUTE AUTO 0.04 K/mm3 (0.00-0.10); IMMATURE GRAN PERCENT AUTO 0 % (0-1); LYMPHOCYTES ABSOLUTE AUTO 1.96 K/mm3 (0.84-5.20); LYMPHOCYTES PERCENT AUTO 19 % (21-46); MONOCYTES ABSOLUTE AUTO 0.86 K/mm3 (0.16-1.47); MONOCYTES PERCENT AUTO 8 % (4-13); Mean Corpuscular HGB 28.7 pg (26.0-34.0); Mean Corpuscular HGB Conc 33.2 g/dL (31.5-36.5); Mean Corpuscular Volume 87 fL (80-100); Mean Platelet Volume 9.5 fL (9.1-12.4); NEUTROPHILS ABSOLUTE AUTO 7.31 K/mm3 (1.96-9.15); NEUTROPHILS PERCENT AUTO 70 % (41-73); Platelet Count 386 K/mm3 (150-400); RDW Coefficient Variation 12.9 % (11.7-14.2); RDW Standard Deviation 40.6 fL (35.1-46.3); Red Blood Cell Count 4.22 M/mm3 (4.30-5.90)
[2017-09-23 00:42] LABS: Alanine Aminotransfer (ALT/SGP 94 U/L (12-78); Albumin, Blood 3.3 g/dL (3.4-5.0); Albumin/Globulin Ratio 0.8 (0.8-1.8); Alk Phos 122 U/L (50-136); Anion Gap 8 mmol/L (6-16); Aspartate Aminotrans (AST/SGOT 42 U/L (12-37); Bilirubin, Total 0.3 mg/dL (0.1-1.0); Blood Urea Nitrogen 24 mg/dL (8-24); Bun/Creatinine Ratio 20.9 (12.0-20.0); CO2, Blood 26 mmol/L (21-32); Calcium, Blood 8.4 mg/dL (8.5-10.1); Chloride, Blood 104 mmol/L (98-108); Creatinine, Blood 1.15 mg/dL (0.60-1.20); Glomerular Filtration Rate >60 (60-); Glucose, Blood 133 mg/dL (70-99); Potassium, Blood 3.8 mmol/L (3.5-5.5); Sodium, Blood 138 mmol/L (136-145); Total Protein, Blood 7.3 g/dL (6.4-8.2); Troponin I <0.015 ng/mL (0.000-0.040)
== END 2017-09-23 01:56 | disposition home or self-care (01) ==
LOC: ER 23:13
PROVIDERS: Emergency Medicine
DX: G89.18 Other acute postprocedural pain (principal); R07.81 Pleurodynia; R06.00 Dyspnea, unspecified; Z88.8 Allergy status to other drugs, medicaments and biological substances; Z88.1 Allergy status to other antibiotic agents; Z91.048 Other nonmedicinal substance allergy status; Z79.899 Other long term (current) drug therapy; Z79.4 Long term (current) use of insulin; Z79.84 Long term (current) use of oral hypoglycemic drugs; Z79.82 Long term (current) use of aspirin; Z79.52 Long term (current) use of systemic steroids; I10 Essential (primary) hypertension; F43.10 Post-traumatic stress disorder, unspecified; E11.9 Type 2 diabetes mellitus without complications
CPT/HCPCS: 36415; 71046; 80053; 84484; 85025; 93005; 93010; 96374; 99285-25; J3010

== ENCOUNTER 2017-09-30 14:00 | Emergency (ER) | payer OTHER, MEDICARE, SELFPAY ==
[~2017-09-30] VITALS: Ht 177.8 cm; Wt 125.2 kg
[2017-09-30] MEDS ORDERED: Norco 5-325 Ta1 EACH PO (15:10)
== END 2017-09-30 15:21 | disposition home or self-care (01) ==
LOC: ER 14:00
DX: G89.18 Other acute postprocedural pain (principal); R07.89 Other chest pain; I10 Essential (primary) hypertension; E11.9 Type 2 diabetes mellitus without complications; F41.0 Panic disorder [episodic paroxysmal anxiety]; Z88.8 Allergy status to other drugs, medicaments and biological substances; Z88.1 Allergy status to other antibiotic agents; Z91.048 Other nonmedicinal substance allergy status; Z79.4 Long term (current) use of insulin; Z79.899 Other long term (current) drug therapy; Z79.82 Long term (current) use of aspirin; Z87.442 Personal history of urinary calculi
CPT/HCPCS: 71046; 99282-25

== ENCOUNTER 2017-10-21 22:03 | Emergency (ER) | payer MEDICARE, SELFPAY ==
[~2017-10-21] VITALS: Ht 177.8 cm; Wt 126.5 kg
[~2017-10-21 22:03] MED LIST changes: +Norco 5-325 Ta1 EACH PO
[2017-10-23] MEDS ORDERED: CYCL10 PO (08:56)
[2017-10-23] MEDS ORDERED: Norco 10-325 T1 EACH PO (08:56)
[2017-10-23] MEDS ORDERED: Naprosyn500 MG PO (08:56)
== END 2017-10-22 01:46 | disposition left against medical advice (07) ==
LOC: ER 22:03
DX: Z53.21 Procedure and treatment not carried out due to patient leaving prior to being seen by health care provider (principal)
CPT/HCPCS: 99281

== ENCOUNTER 2017-10-23 07:11 | Emergency (ER) | payer MEDICARE, SELFPAY ==
[~2017-10-23] VITALS: Ht 177.8 cm; Wt 126.1 kg
[2017-10-23] MEDS ORDERED: CYCL10 PO (08:56)
[2017-10-23] MEDS ORDERED: Naprosyn500 MG PO (08:56)
[2017-10-23] MEDS ORDERED: Norco 10-325 T1 EACH PO (08:56)
== END 2017-10-23 09:00 | disposition home or self-care (01) ==
LOC: ER 07:11
DX: S16.1XXA Strain of muscle, fascia and tendon at neck level, initial encounter (principal); I10 Essential (primary) hypertension; E11.9 Type 2 diabetes mellitus without complications; Z88.8 Allergy status to other drugs, medicaments and biological substances; Z88.1 Allergy status to other antibiotic agents; Z91.048 Other nonmedicinal substance allergy status; Z79.899 Other long term (current) drug therapy; Z79.4 Long term (current) use of insulin; Z79.82 Long term (current) use of aspirin; Z87.442 Personal history of urinary calculi; V89.2XXA Person injured in unspecified motor-vehicle accident, traffic, initial encounter
CPT/HCPCS: 72040; 99283-25

== ENCOUNTER 2018-03-18 12:50 | Emergency (ER) | payer MEDICARE, OTHER ==
[~2018-03-18] VITALS: Ht 177.8 cm; Wt 121.6 kg
[~2018-03-18 12:50] MED LIST changes: +Naprosyn500 MG PO
[2018-03-18 13:33] LABS: BASOPHILS ABSOLUTE AUTO 0.05 K/mm3 (0.00-0.23); BASOPHILS PERCENT AUTO 0 % (0-2); EOSINOPHILS ABSOLUTE AUTO 0.16 K/mm3 (0.00-0.68); EOSINOPHILS PERCENT AUTO 1 % (0-6); Hematocrit 37.8 % (37.0-53.0); Hemoglobin 12.1 g/dL (13.5-17.5); IMMATURE GRAN ABSOLUTE AUTO 0.06 K/mm3 (0.00-0.10); IMMATURE GRAN PERCENT AUTO 1 % (0-1); LYMPHOCYTES ABSOLUTE AUTO 1.95 K/mm3 (0.84-5.20); LYMPHOCYTES PERCENT AUTO 16 % (21-46); MONOCYTES ABSOLUTE AUTO 0.79 K/mm3 (0.16-1.47); MONOCYTES PERCENT AUTO 6 % (4-13); Mean Corpuscular HGB 28.9 pg (26.0-34.0); Mean Corpuscular Volume 90 fL (80-100); Mean Platelet Volume 9.6 fL (9.1-12.4); NEUTROPHILS ABSOLUTE AUTO 9.35 K/mm3 (1.96-9.15); NEUTROPHILS PERCENT AUTO 76 % (41-73); Platelet Count 396 K/mm3 (150-400); RDW Coefficient Variation 13.1 % (11.7-14.2); RDW Standard Deviation 43.1 fL (35.1-46.3); Red Blood Cell Count 4.18 M/mm3 (4.30-5.90); White Blood Cell Count 12.36 K/mm3 (4.00-11.30)
[2018-03-18 14:00] LABS: Albumin, Blood 3.2 g/dL (3.4-5.0); Albumin/Globulin Ratio 0.8 (0.8-1.8); Bilirubin, Total 0.2 mg/dL (0.1-1.0); Bun/Creatinine Ratio 14.9 (12.0-20.0); Calcium, Blood 8.2 mg/dL (8.5-10.1); Creatinine, Blood 1.54 mg/dL (0.60-1.20); Globulin, Blood 3.8 g/dL (2.2-4.0)
== END 2018-03-18 15:31 | disposition home or self-care (01) ==
LOC: ER 12:50
PROVIDERS: Emergency Medicine
DX: R55 Syncope and collapse (principal); Z88.8 Allergy status to other drugs, medicaments and biological substances; Z88.1 Allergy status to other antibiotic agents; Z91.048 Other nonmedicinal substance allergy status; Z79.899 Other long term (current) drug therapy; Z79.4 Long term (current) use of insulin; Z79.82 Long term (current) use of aspirin; I10 Essential (primary) hypertension; F43.10 Post-traumatic stress disorder, unspecified; E11.9 Type 2 diabetes mellitus without complications; J44.9 Chronic obstructive pulmonary disease, unspecified; F32.9 Major depressive disorder, single episode, unspecified
CPT/HCPCS: 36415; 80053; 85025; 93005; 93010; 96360; 96361; 99284-25; J7030

== ENCOUNTER → 2018-04-02 | Outpatient (CLI) | payer MEDICARE, OTHER ==
[2018-04-02 17:43] LABS: U Amphetamine Screen Not Detected; U Barbituate Screen Not Detected; U Benzodiazapine Screen Not Detected; U Buprenorphine Screen Not Detected; U Cannabinoids Screen Not Detected; U Cocaine Screen Not Detected; U Methadone Screen Not Detected; U Methamphetamine Screen Not Detected; U Opiates Screen DETECTED; U Oxycodone Screen Not Detected; U Phencyclidine Screen Not Detected; U Propoxyphene Screen Not Detected
== END | disposition home or self-care (01) ==
LOC: LAB SHORT 10:38 → LAB 10:38
PROVIDERS: Internal Medicine
DX: Z51.81 Encounter for therapeutic drug level monitoring (principal); Z79.891 Long term (current) use of opiate analgesic
CPT/HCPCS: G0480

== ENCOUNTER 2018-10-22 22:09 | Observation (INO) | payer MEDICARE, OTHER ==
[~2018-10-22] VITALS: Ht 177.8 cm; Wt 104.5 kg
[~2018-10-22 22:09] MED LIST changes: -CHOL10002 PO; +VITAMIN D-32000 UNIT PO
[2018-10-22 22:50] LABS: BASOPHILS ABSOLUTE AUTO 0.06 K/mm3 (0.00-0.23); BASOPHILS PERCENT AUTO 1 % (0-2); EOSINOPHILS ABSOLUTE AUTO 0.19 K/mm3 (0.00-0.68); EOSINOPHILS PERCENT AUTO 2 % (0-6); Hematocrit 35.9 % (37.0-53.0); Hemoglobin 12.7 g/dL (13.5-17.5); IMMATURE GRAN ABSOLUTE AUTO 0.02 K/mm3 (0.00-0.10); IMMATURE GRAN PERCENT AUTO 0 % (0-1); LYMPHOCYTES ABSOLUTE AUTO 2.87 K/mm3 (0.84-5.20); LYMPHOCYTES PERCENT AUTO 29 % (21-46); MONOCYTES ABSOLUTE AUTO 0.81 K/mm3 (0.16-1.47); MONOCYTES PERCENT AUTO 8 % (4-13); Mean Corpuscular HGB Conc 35.4 g/dL (31.5-36.5); Mean Corpuscular Volume 88 fL (80-100); Mean Platelet Volume 9.9 fL (9.1-12.4); NEUTROPHILS ABSOLUTE AUTO 5.86 K/mm3 (1.96-9.15); NEUTROPHILS PERCENT AUTO 60 % (41-73); Platelet Count 345 K/mm3 (150-400); RDW Coefficient Variation 12.6 % (11.7-14.2); White Blood Cell Count 9.81 K/mm3 (4.00-11.30)
[2018-10-22 23:05] LABS: Troponin I <0.015 ng/mL (0.000-0.040)
[2018-10-22 23:16] LABS: Alanine Aminotransfer (ALT/SGP 39 U/L (12-78); Albumin, Blood 3.5 g/dL (3.4-5.0); Albumin/Globulin Ratio 0.9 (0.8-1.8); Alk Phos 100 U/L (50-136); Anion Gap 7 mmol/L (6-16); Aspartate Aminotrans (AST/SGOT 20 U/L (12-37); Bilirubin, Total 0.4 mg/dL (0.1-1.0); Blood Urea Nitrogen 25 mg/dL (8-24); Bun/Creatinine Ratio 21.2 (12.0-20.0); CO2, Blood 27 mmol/L (21-32); Calcium, Blood 8.1 mg/dL (8.5-10.1); Chloride, Blood 109 mmol/L (98-108); Creatinine, Blood 1.18 mg/dL (0.60-1.20); Globulin, Blood 3.8 g/dL (2.2-4.0); Glomerular Filtration Rate >60 (60-); Glucose, Blood 161 mg/dL (70-99); Potassium, Blood 3.7 mmol/L (3.5-5.5); Sodium, Blood 143 mmol/L (136-145); Total Protein, Blood 7.3 g/dL (6.4-8.2)
--- NOTE | 2018-10-23 05:12 | NUR ---
SHIFT SUMMARY PT ARRIVED TO THE FLOOR WITHOUT INCIDENT VIA STRETCHER. PT WAS GIVEN NITRO ONCE FOR 2/10 CHEST PRESSURE. THE PAIN WENT TO 1/10, POST THE FIRST NITRO. PT DECLINED A SECOND DUE TO HEADACHE. VITALS REMAIN STABLE THROUGHOUT SHIFT. NO TELEMETRY CALLS WERE RECIEVED BY THIS RN. THIS RN ATTMEPTED TO MAKE THE CARDIOLOGY CONSULT BY CALLING THE LINE PROVIDED BY THE MORTGAGE ADVISOR. ALL THREE ATTMEPTS WERE UNSUCCESSFUL, THE LATEST ATTEMPT BEING AT 0504. PT HAS NO OTHER COMPLAINTS AT THIS TIME. WILL CONTINUE TO MONITOR.
[2018-10-23 08:11] LABS: International Normalized Ratio 1.01; Prothrombin Time Results 10.7 Sec (9.7-11.5)
--- NOTE | 2018-10-23 09:58 | NUR ---
Echocardiogram completed.
--- NOTE | 2018-10-23 12:05 | NUR ---
Patient is lying in bed and alert. Patient is very talkative and shared with me about his family life (including a painful divorce), about his damian (patient has a pentacostal background) and about his current medical issues. Patient shared his frustration with his on-going health issues. I conducted a life review, explored patient's belief system, reinforced helpful attitudes and practices and provided prayer. Patient responded well and showed signs of and elevated mood and having more peace about his health struggle. I will remain available to patient.
[2018-10-23 13:31] LABS: Hematocrit 36.6 % (37.0-53.0); Hemoglobin 12.3 g/dL (13.5-17.5); Mean Corpuscular HGB 30.1 pg (26.0-34.0); Mean Corpuscular HGB Conc 33.6 g/dL (31.5-36.5); Mean Corpuscular Volume 90 fL (80-100); Mean Platelet Volume 9.3 fL (9.1-12.4); Platelet Count 356 K/mm3 (150-400); RDW Coefficient Variation 12.4 % (11.7-14.2); RDW Standard Deviation 40.8 fL (35.1-46.3); Red Blood Cell Count 4.09 M/mm3 (4.30-5.90); White Blood Cell Count 8.34 K/mm3 (4.00-11.30)
[2018-10-23 14:06] LABS: Alanine Aminotransfer (ALT/SGP 27 U/L (12-78); Albumin, Blood 3.4 g/dL (3.4-5.0); Albumin/Globulin Ratio 0.9 (0.8-1.8); Alk Phos 85 U/L (50-136); Anion Gap 8 mmol/L (6-16); Aspartate Aminotrans (AST/SGOT 13 U/L (12-37); Bilirubin, Total 0.3 mg/dL (0.1-1.0); Blood Urea Nitrogen 19 mg/dL (8-24); Bun/Creatinine Ratio 19.9 (12.0-20.0); CO2, Blood 26 mmol/L (21-32); Calcium, Blood 8.5 mg/dL (8.5-10.1); Chloride, Blood 108 mmol/L (98-108); Creatinine, Blood 0.95 mg/dL (0.60-1.20); Globulin, Blood 3.8 g/dL (2.2-4.0); Glomerular Filtration Rate >60 (60-); Glucose, Blood 154 mg/dL (70-99); Potassium, Blood 3.4 mmol/L (3.5-5.5); Sodium, Blood 142 mmol/L (136-145); Total Protein, Blood 7.2 g/dL (6.4-8.2)
--- NOTE | 2018-10-23 15:26 | NUR ---
SUMMARY PT IS A/O X4, PLEASANT/COOPERATIVE. IND IN ROOM. THIS AM HE STATED CHEST PRESSURE 3-4/10, STATE REASON HE CAME TO HOSP. TELE NSR 65, BP 128/58, HE STATE NO N/T EXTREMITIES. SL NITRO GIVEN, DR CLAIRE NOTIFIED, PT STATE RELIEF. DOCUMENTATION CLERK DR SAXENA IN TO SEE PT, ORDER STRESS TEST, 1ST PORTION COMPLETED TODAY. 2ND PROTION TOMORROW, HE MAY HAVE BF THEN NPO TOMORROW @ 1000. HE HAS STATED NO FURTHER CHEST DISCOMFORT TODAY. VSS. ADA DIET & CBG'S ORDERED, HX DM.
--- NOTE | 2018-10-24 05:30 | NUR ---
Rn summary: Patient is alert and orineted. Pt continues to be up independantly in room. Pt was having some tightness in throat, some from previous surgery. Pt states he feels like he needs his albuterol inhaler. Order received and resp notified. Pt declined med when available, states he was feeling better. Pt medicated x2 with ultram 50mg for back and tailbone pain with good relief. Pt was able to rest on and off this shift. Pt denies any chest pain or tightness this am. Tele shows Sinus Navin rate in the 50's. Pt to have 2nd half of stress test this afternoon, NPO after 1000 am. Pt is aware. Call light in reach. Calls appropriately.
--- NOTE | 2018-10-24 17:20 | NUR ---
SHIFT SUMMARY THE SECOND PART OF THE STRESS TEST WAS PERFORMED TODAY. BASED ON THE RESULTS: IF NEGATIVE PT MAY DC TODAY. PT IS RUNNING NSR @ 68 BPM TODAY PER PCU ROLL EDGE STITCHER HAND. PT USES A CPAP AT NIGHT. HE IS INDEPENDENT IN THE ROOM, A&O X4. HE IS EAGER TO GO HOME. HE HAS CHRONIC PAIN IN BACK, JOINTS, AND LEGS.
[2018-10-24] MEDS ORDERED: METF500 PO ×2 (19:41)
[2018-10-24] MEDS ORDERED: POTASSIUM CITR15 MEQ PO ×2 (19:41)
[2018-10-24] MEDS ORDERED: TOUJEO SOL300 UNIT/1 SC ×2 (19:42)
[2018-10-24] MEDS ORDERED: PANT40 PO ×2 (19:43)
[2018-10-24] MEDS ORDERED: ONDA4ODT PO ×2 (19:45)
[2018-10-24] MEDS ORDERED: MONT10T PO ×2 (19:45)
[2018-10-24] MEDS ORDERED: PROAIR RESPICL90 MCG INH ×2 (19:48)
[2018-10-24] MEDS ORDERED: CLON1 PO ×2 (19:49)
[2018-10-24] MEDS ORDERED: Loratadine10 MG PO ×2 (19:50)
[2018-10-24] MEDS ORDERED: LIDO700A20 TOP ×2 (19:52)
[2018-10-24] MEDS ORDERED: MELATONIN5 M1 PO ×2 (19:53)
[2018-10-24] MEDS ORDERED: ALBU90OI INH ×2 (19:54)
[2018-10-24] MEDS ORDERED: B Complex #11 EACH PO ×2 (19:54)
[2018-10-24] MEDS ORDERED: DOCU100 PO ×2 (19:55)
[2018-10-24] MEDS ORDERED: FERSU300 PO ×2 (19:55)
--- NOTE | 2018-10-24 21:12 | NUR ---
Pt discharged to home per MD order at 2029. See d/c instructions. Pt escorted to door by RN.
--- NOTE | 2018-10-25 09:41 | NUR ---
MED REC CHANGE FOR 10/24/18 DISCHARGE: PER DR. CLAIRE TELEPHONE ORDER: 1) CHANGE BABY ASPIRIN FROM 324 MG PO DAILY TO 81 MG PO DAILY. 2) OK FOR GI COCKTAIL TO NOT CONTAIN IF UNAVAILABLE AT PHARMACY. THIS RN CALLED AND SPOKE WITH PHARMACIST REID AT [facility] TO UPDATE HER OF THESE CHANGES AT APPRROX. 0940.
== END 2018-10-24 20:35 | disposition left against medical advice (07) ==
LOC: ER 22:09 → MEDS 22:10 → ER 22:10 → MEDS 23:31
PROVIDERS: Emergency Medicine; Internal Medicine; ADMIT Internal Medicine
DX: R07.2 Precordial pain (principal); F32.9 Major depressive disorder, single episode, unspecified; E78.5 Hyperlipidemia, unspecified; R94.39 Abnormal result of other cardiovascular function study; I11.9 Hypertensive heart disease without heart failure; E11.9 Type 2 diabetes mellitus without complications; E66.01 Morbid (severe) obesity due to excess calories; G47.33 Obstructive sleep apnea (adult) (pediatric); M19.90 Unspecified osteoarthritis, unspecified site; Z88.1 Allergy status to other antibiotic agents; Z88.8 Allergy status to other drugs, medicaments and biological substances; Z99.89 Dependence on other enabling machines and devices; Z91.041 Radiographic dye allergy status; Z79.82 Long term (current) use of aspirin; Z79.899 Other long term (current) drug therapy; Z68.39 Body mass index [BMI] 39.0-39.9, adult
CPT/HCPCS: 36415; 71045; 78452; 80053; 82947; 83690; 83880; 84484; 85025; 85027; 85610; 85730; 93005; 93010; 93017; 93306; 94660; 94762; 96372; 96374; 96375; 96376; 99285-25; A9500; G0378; J0706; J1200; J1650; J2405; J2785; J3010

== ENCOUNTER 2018-10-26 17:50 | Inpatient (IN) | payer MEDICARE, OTHER ==
[~2018-10-26] VITALS: Ht 165.1 cm; Wt 126.5 kg
[~2018-10-26 17:50] MED LIST changes: +B Complex #11 EACH PO; +DOCU100 PO; +FERSU300 PO; +LIDO700A20 TOP; +Loratadine10 MG PO; +MELATONIN5 M1 PO; +MONT10T PO; +ONDA4ODT PO; +POTASSIUM CITR15 MEQ PO; +PROAIR RESPICL90 MCG INH; +TOUJEO SOL300 UNIT/1 SC
[2018-10-26 18:45] LABS: BASOPHILS ABSOLUTE AUTO 0.05 K/mm3 (0.00-0.23); BASOPHILS PERCENT AUTO 0 % (0-2); EOSINOPHILS ABSOLUTE AUTO 0.15 K/mm3 (0.00-0.68); EOSINOPHILS PERCENT AUTO 1 % (0-6); Hematocrit 39.8 % (37.0-53.0); Hemoglobin 13.1 g/dL (13.5-17.5); IMMATURE GRAN ABSOLUTE AUTO 0.03 K/mm3 (0.00-0.10); IMMATURE GRAN PERCENT AUTO 0 % (0-1); LYMPHOCYTES ABSOLUTE AUTO 2.74 K/mm3 (0.84-5.20); LYMPHOCYTES PERCENT AUTO 24 % (21-46); MONOCYTES ABSOLUTE AUTO 0.87 K/mm3 (0.16-1.47); MONOCYTES PERCENT AUTO 8 % (4-13); Mean Corpuscular HGB 29.8 pg (26.0-34.0); Mean Corpuscular HGB Conc 32.9 g/dL (31.5-36.5); Mean Corpuscular Volume 91 fL (80-100); Mean Platelet Volume 9.5 fL (9.1-12.4); NEUTROPHILS ABSOLUTE AUTO 7.56 K/mm3 (1.96-9.15); NEUTROPHILS PERCENT AUTO 66 % (41-73); Platelet Count 405 K/mm3 (150-400); RDW Coefficient Variation 12.7 % (11.7-14.2); RDW Standard Deviation 41.8 fL (35.1-46.3); Red Blood Cell Count 4.39 M/mm3 (4.30-5.90)
[2018-10-26 19:08] LABS: Alanine Aminotransfer (ALT/SGP 30 U/L (12-78); Albumin, Blood 3.7 g/dL (3.4-5.0); Albumin/Globulin Ratio 0.9 (0.8-1.8); Alk Phos 90 U/L (50-136); Anion Gap 6 mmol/L (6-16); Aspartate Aminotrans (AST/SGOT 14 U/L (12-37); Bilirubin, Total 0.3 mg/dL (0.1-1.0); Blood Urea Nitrogen 48 mg/dL (8-24); Bun/Creatinine Ratio 15.4 (12.0-20.0); CO2, Blood 26 mmol/L (21-32); Calcium, Blood 8.8 mg/dL (8.5-10.1); Chloride, Blood 105 mmol/L (98-108); Creatinine, Blood 3.12 mg/dL (0.60-1.20); Glomerular Filtration Rate 22 (60-); Glucose, Blood 75 mg/dL (70-99); Potassium, Blood 4.1 mmol/L (3.5-5.5); Sodium, Blood 137 mmol/L (136-145); Total Protein, Blood 7.7 g/dL (6.4-8.2); Troponin I <0.015 ng/mL (0.000-0.040)
[2018-10-26 20:46] LABS: Source, Urine Voided
[2018-10-26 20:54] LABS: Blood, Urine Neg (Neg); Glucose Qualitative, Urine Neg (Neg); Ketones, Urine 1+ (Neg); Leukocyte Esterase, Urine 1+ (Neg); Nitrite, Urine Neg (Neg); Protein, Urine 2+ (Neg); Urobilinogen, Urine NORM (Normal)
[2018-10-26 21:02] LABS: Appearance, Urine Hazy (Clear); Bilirubin, Urine 1+ (Neg); Color, Urine Yellow (P-Yellow)
[2018-10-26 21:04] LABS: Bacteria Mod /hpf; Red Blood Cells, Urine Not Seen /hpf (0-2); Squamous Epithelial Cells Mod /hpf (Few)
[2018-10-26 21:06] LABS: Calcium Oxalate Crystals Few /hpf; Hyaline Casts 25-50 /lpf (0-2)
--- NOTE | 2018-10-26 22:30 | NUR ---
ATTEMPTED CALL FOR REPORT FROM ED RN SANCHEZ. SANCHEZ WILL CALL BACK WHEN AVAILABLE.
--- NOTE | 2018-10-27 04:32 | NUR ---
MEDICAL BILLING SERVICE SUMMARY NEW ADMIT FROM THE ED TONIGHT. PT AAOX4 AND PLEASANT. 1 ASSIST WITH AMBULATION. CAME IN AFTER HAVING NEAR SYNCOPAL EPISODE AT THE [facility]. PT STATES HE STILL HAS SOME LIGHTHEADEDNESS WHEN STANDING UP. PT WAS NOTED TO BY HYPOGLYCEMIC WHEN HE ARRIVED TO THE ER, CBG HAVE BEEN 180 AND 137 SINCE ARRIVING TO THE FLOOR. CONTINUING IV FLUID HYDRATION. VSS, WILL CONTINUE TO MONITOR.
[2018-10-27 05:57] LABS: Calcium, Blood 7.8 mg/dL (8.5-10.1); Creatinine, Blood 1.91 mg/dL (0.60-1.20); Potassium, Blood 3.8 mmol/L (3.5-5.5)
--- NOTE | 2018-10-27 18:25 | NUR ---
SHIFT SUMMARY MIKAL HAD BACK PAIN THIS SHIFT WHICH WAS HELPED BY TYLENOL, NAPROXEN, AND TRAMADOL. FRIENDS VISITED. TELE DC'D. MIVF RUNNING. CBGS DONE ORDERED AND INSULIN GIVEN. SBA TO BR. COMPLAINS OF DIZZINESS WITH WALKING. CALL LIGHT IN REACH, [facility]
[2018-10-28 05:44] LABS: Anion Gap 7 mmol/L (6-16); Blood Urea Nitrogen 25 mg/dL (8-24); Bun/Creatinine Ratio 23.4 (12.0-20.0); CO2, Blood 26 mmol/L (21-32); Calcium, Blood 8.8 mg/dL (8.5-10.1); Chloride, Blood 109 mmol/L (98-108); Creatinine, Blood 1.07 mg/dL (0.60-1.20); Glomerular Filtration Rate >60 (60-); Glucose, Blood 149 mg/dL (70-99); Potassium, Blood 3.7 mmol/L (3.5-5.5); Sodium, Blood 142 mmol/L (136-145)
--- NOTE | 2018-10-28 05:44 | NUR ---
SHIFT SUMMARY PT A&O X4. HAS BEEN USING URINAL AT BEDSIDE. IVF'S INFUSED, IV SALINE LOCKED. PT HAD SOME C/O FLANK PAIN EARLY ON IN SHIFT, BUT HAS SLEPT WELL. NO ACUTE EVENTS NOTED, WILL CONTINUE TO MONITOR.
--- NOTE | 2018-10-28 14:07 | NUR ---
PT DC'D 1340 WITH DC INSTRUCTIONS- PT TX VIA W/C OUT TO CAR FOR TO DRIVE HOME. IV DC'D, BELONGINGS SENT HOME WITH PT. NO NEW MEDS- 2 MEDS PT TO DC. STATES UNDERSTANDING OF INSTRUCTIONS.
== END 2018-10-28 12:34 | disposition home or self-care (01) | DRG 683 ==
LOC: ER 17:50 → MEDS 17:51 → ENPENDDIS 10-28 11:28 → MEDS 10-28 12:34
PROVIDERS: Emergency Medicine; Hospitalist; ADMIT Hospitalist
DX: N17.9 Acute kidney failure, unspecified (principal); Z68.41 Body mass index [BMI] 40.0-44.9, adult; I10 Essential (primary) hypertension; Z79.4 Long term (current) use of insulin; G47.33 Obstructive sleep apnea (adult) (pediatric); J44.9 Chronic obstructive pulmonary disease, unspecified; F32.9 Major depressive disorder, single episode, unspecified; E66.01 Morbid (severe) obesity due to excess calories; E11.649 Type 2 diabetes mellitus with hypoglycemia without coma; D50.9 Iron deficiency anemia, unspecified; E83.51 Hypocalcemia; Z88.8 Allergy status to other drugs, medicaments and biological substances; Z79.84 Long term (current) use of oral hypoglycemic drugs; Z79.82 Long term (current) use of aspirin; Z79.818 Long term (current) use of other agents affecting estrogen receptors and estrogen levels; Z79.899 Other long term (current) drug therapy
CPT/HCPCS: 36415; 71046; 80048; 80053; 81001; 82947; 83880; 84484; 85025; 93005; 93010; 94660; 94762; 96360; 96361; 96372; 99285-25; A9270; G0378; J1644; J1650; J7030; J7120

== ENCOUNTER → 2019-06-12 | Outpatient (CLI) | payer MEDICARE, OTHER ==
[2019-06-12 12:12] LABS: BASOPHILS ABSOLUTE AUTO 0.05 K/mm3 (0.00-0.23); BASOPHILS PERCENT AUTO 1 % (0-2); EOSINOPHILS ABSOLUTE AUTO 0.31 K/mm3 (0.00-0.68); EOSINOPHILS PERCENT AUTO 3 % (0-6); Hematocrit 41.2 % (37.0-53.0); Hemoglobin 13.4 g/dL (13.5-17.5); IMMATURE GRAN ABSOLUTE AUTO 0.02 K/mm3 (0.00-0.10); IMMATURE GRAN PERCENT AUTO 0 % (0-1); LYMPHOCYTES ABSOLUTE AUTO 1.89 K/mm3 (0.84-5.20); LYMPHOCYTES PERCENT AUTO 20 % (21-46); MONOCYTES ABSOLUTE AUTO 0.67 K/mm3 (0.16-1.47); MONOCYTES PERCENT AUTO 7 % (4-13); Mean Corpuscular HGB 29.2 pg (26.0-34.0); Mean Corpuscular HGB Conc 32.5 g/dL (31.5-36.5); Mean Corpuscular Volume 90 fL (80-100); Mean Platelet Volume 9.5 fL (9.1-12.4); NEUTROPHILS ABSOLUTE AUTO 6.32 K/mm3 (1.96-9.15); NEUTROPHILS PERCENT AUTO 68 % (41-73); Platelet Count 384 K/mm3 (150-400); RDW Coefficient Variation 12.9 % (11.7-14.2); RDW Standard Deviation 42.5 fL (35.1-46.3); Red Blood Cell Count 4.59 M/mm3 (4.30-5.90); White Blood Cell Count 9.26 K/mm3 (4.00-11.30)
[2019-06-12 12:26] LABS: Alanine Aminotransfer (ALT/SGP 35 U/L (12-78); Albumin, Blood 3.8 g/dL (3.4-5.0); Albumin/Globulin Ratio 1.1 (0.8-1.8); Alk Phos 85 U/L (50-136); Anion Gap 4 mmol/L (6-16); Aspartate Aminotrans (AST/SGOT 15 U/L (12-37); Bilirubin, Direct <0.1 mg/dL (0.0-0.3); Bilirubin, Indirect Unable to Calculate mg/dL (0.1-0.7); Bilirubin, Total 0.3 mg/dL (0.1-1.0); Blood Urea Nitrogen 17 mg/dL (8-24); CHOL/HDL RATIO 6.6; CO2, Blood 28 mmol/L (21-32); Calcium, Blood 8.8 mg/dL (8.5-10.1); Chloride, Blood 106 mmol/L (98-108); Cholesterol 171 mg/dL (50-200); Creatinine, Blood 0.85 mg/dL (0.60-1.20); Globulin, Blood 3.6 g/dL (2.2-4.0); Glomerular Filtration Rate >60 (60-); Glucose, Blood 169 mg/dL (70-99); HDL Cholesterol 26 mg/dL (>39); LDL/HDL RATIO 3.2; Low Density Lipoprotein Chol 84 mg/dL (0-110); Potassium, Blood 3.8 mmol/L (3.5-5.5); Sodium, Blood 138 mmol/L (136-145); Total Protein, Blood 7.4 g/dL (6.4-8.2); Triglycerides 306 mg/dL (30-160); Very Low Density Lipoprot Chol 61 mg/dL (6-32)
[2019-06-12 12:51] LABS: Microalb/Creat Ratio UR, Rand 65.385 mg/g (0.000-30.000)
== END | disposition home or self-care (01) ==
LOC: LAB SHORT 11:08 → OLS 11:08 → LAB FUT 02-22 16:05
PROVIDERS: Nurse Practitioner Family
DX: E11.43 Type 2 diabetes mellitus with diabetic autonomic (poly)neuropathy (principal); I10 Essential (primary) hypertension; E66.01 Morbid (severe) obesity due to excess calories; K76.0 Fatty (change of) liver, not elsewhere classified
CPT/HCPCS: 36415; 80053; 80061; 82043; 82248; 82570; 83036; 83880; 85025

== ENCOUNTER 2019-11-28 11:40 | Emergency (ER) | payer MEDICARE ==
[~2019-11-28] VITALS: Ht 175.3 cm; Wt 78.0 kg
[2019-11-28 12:23] LABS: BASOPHILS ABSOLUTE AUTO 0.06 K/mm3 (0.00-0.23); BASOPHILS PERCENT AUTO 1 % (0-2); EOSINOPHILS ABSOLUTE AUTO 0.41 K/mm3 (0.00-0.68); EOSINOPHILS PERCENT AUTO 4 % (0-6); Hematocrit 41.1 % (37.0-53.0); Hemoglobin 13.4 g/dL (13.5-17.5); IMMATURE GRAN ABSOLUTE AUTO 0.03 K/mm3 (0.00-0.10); IMMATURE GRAN PERCENT AUTO 0 % (0-1); LYMPHOCYTES ABSOLUTE AUTO 2.14 K/mm3 (0.84-5.20); LYMPHOCYTES PERCENT AUTO 22 % (21-46); MONOCYTES ABSOLUTE AUTO 0.74 K/mm3 (0.16-1.47); MONOCYTES PERCENT AUTO 8 % (4-13); Mean Corpuscular HGB 29.5 pg (26.0-34.0); Mean Corpuscular HGB Conc 32.6 g/dL (31.5-36.5); Mean Corpuscular Volume 90 fL (80-100); Mean Platelet Volume 9.4 fL (9.1-12.4); NEUTROPHILS ABSOLUTE AUTO 6.48 K/mm3 (1.96-9.15); NEUTROPHILS PERCENT AUTO 66 % (41-73); Platelet Count 382 K/mm3 (150-400); RDW Coefficient Variation 12.6 % (11.7-14.2); RDW Standard Deviation 41.7 fL (35.1-46.3); Red Blood Cell Count 4.55 M/mm3 (4.30-5.90); White Blood Cell Count 9.86 K/mm3 (4.00-11.30)
[2019-11-28 12:39] LABS: Alanine Aminotransfer (ALT/SGP 23 U/L (12-78); Albumin, Blood 3.6 g/dL (3.4-5.0); Albumin/Globulin Ratio 0.9 (0.8-1.8); Alk Phos 115 U/L (50-136); Anion Gap 8 mmol/L (6-16); Aspartate Aminotrans (AST/SGOT 6 U/L (12-37); Bilirubin, Total 0.3 mg/dL (0.1-1.0); Blood Urea Nitrogen 19 mg/dL (8-24); Bun/Creatinine Ratio 20.8 (12.0-20.0); CO2, Blood 24 mmol/L (21-32); Calcium, Blood 8.8 mg/dL (8.5-10.1); Chloride, Blood 105 mmol/L (98-108); Creatinine, Blood 0.91 mg/dL (0.60-1.20); Globulin, Blood 4.1 g/dL (2.2-4.0); Glomerular Filtration Rate >60 (60-); Glucose, Blood 283 mg/dL (70-99); Potassium, Blood 4.5 mmol/L (3.5-5.5); Sodium, Blood 137 mmol/L (136-145); Total Protein, Blood 7.7 g/dL (6.4-8.2); Troponin I <0.015 ng/mL (0.000-0.040)
== END 2019-11-28 15:37 | disposition home or self-care (01) ==
LOC: ER 11:40
PROVIDERS: Physician Assistant
DX: I10 Essential (primary) hypertension (principal); F41.0 Panic disorder [episodic paroxysmal anxiety]; E11.9 Type 2 diabetes mellitus without complications; K21.9 Gastro-esophageal reflux disease without esophagitis; F32.9 Major depressive disorder, single episode, unspecified; J44.9 Chronic obstructive pulmonary disease, unspecified; F43.10 Post-traumatic stress disorder, unspecified; Z88.8 Allergy status to other drugs, medicaments and biological substances; Z88.1 Allergy status to other antibiotic agents; Z88.3 Allergy status to other anti-infective agents; Z91.09 Other allergy status, other than to drugs and biological substances; Z79.899 Other long term (current) drug therapy; Z79.82 Long term (current) use of aspirin; Z79.4 Long term (current) use of insulin; Z87.442 Personal history of urinary calculi
CPT/HCPCS: 36415; 71046; 80053; 82947; 84484; 85025; 93005; 93010; 99285-25

== ENCOUNTER 2020-03-22 12:45 | Emergency (ER) | payer MEDICARE ==
[~2020-03-22] VITALS: Ht 177.8 cm; Wt 120.7 kg
== END 2020-03-22 15:46 | disposition home or self-care (01) ==
LOC: ER 12:45
DX: U07.1 COVID-19 (principal); R06.02 Shortness of breath; I10 Essential (primary) hypertension; E11.9 Type 2 diabetes mellitus without complications; K21.9 Gastro-esophageal reflux disease without esophagitis; J44.9 Chronic obstructive pulmonary disease, unspecified; Z79.4 Long term (current) use of insulin; Z79.899 Other long term (current) drug therapy; Z79.82 Long term (current) use of aspirin; Z88.8 Allergy status to other drugs, medicaments and biological substances; Z88.1 Allergy status to other antibiotic agents; Z88.3 Allergy status to other anti-infective agents; Z91.09 Other allergy status, other than to drugs and biological substances; Z87.442 Personal history of urinary calculi
CPT/HCPCS: 36415; 71045; 99284-25

== ENCOUNTER 2022-04-10 21:22 | Emergency (ER) | payer OTHER ==
[~2022-04-10] VITALS: Ht 172.7 cm; Wt 117.5 kg
[2022-04-10 22:08] LABS: BASOPHILS ABSOLUTE AUTO 0.08 K/mm3 (0.00-0.23); BASOPHILS PERCENT AUTO 1 % (0-2); EOSINOPHILS ABSOLUTE AUTO 0.31 K/mm3 (0.00-0.68); EOSINOPHILS PERCENT AUTO 4 % (0-6); Hematocrit 43.3 % (37.0-53.0); Hemoglobin 14.9 g/dL (13.5-17.5); IMMATURE GRAN ABSOLUTE AUTO 0.07 K/mm3 (0.00-0.10); IMMATURE GRAN PERCENT AUTO 1 % (0-1); LYMPHOCYTES ABSOLUTE AUTO 2.89 K/mm3 (0.84-5.20); LYMPHOCYTES PERCENT AUTO 33 % (21-46); MONOCYTES ABSOLUTE AUTO 0.85 K/mm3 (0.16-1.47); MONOCYTES PERCENT AUTO 10 % (4-13); Mean Corpuscular HGB 29.8 pg (26.0-34.0); Mean Corpuscular HGB Conc 34.4 g/dL (31.5-36.5); Mean Corpuscular Volume 87 fL (80-100); NEUTROPHILS PERCENT AUTO 53 % (41-73); RDW Coefficient Variation 12.8 % (11.7-14.2); RDW Standard Deviation 40.4 fL (35.1-46.3)
[2022-04-10 22:09] LABS: Mean Platelet Volume 9.6 fL (9.1-12.4); Platelet Count 330 K/mm3 (150-400)
[2022-04-10 22:31] LABS: Albumin, Blood 3.7 g/dL (3.4-5.0); Albumin/Globulin Ratio 0.9 (0.8-1.8); Bilirubin, Total 0.3 mg/dL (0.1-1.0); Bun/Creatinine Ratio 22.4 (12.0-20.0); Calcium, Blood 8.8 mg/dL (8.5-10.1); Creatinine, Blood 0.85 mg/dL (0.60-1.20); Globulin, Blood 3.9 g/dL (2.2-4.0); Potassium, Blood 3.9 mmol/L (3.5-5.5); Total Protein, Blood 7.6 g/dL (6.4-8.2)
[2022-04-11] MEDS ORDERED: PRED20 PO (03:12)
== END 2022-04-10 22:49 | disposition home or self-care (01) ==
LOC: ER 21:22
PROVIDERS: Student in an Organized Health Care Education/Training Program
DX: L29.9 Pruritus, unspecified (principal); E11.9 Type 2 diabetes mellitus without complications; I10 Essential (primary) hypertension; K21.9 Gastro-esophageal reflux disease without esophagitis; J44.9 Chronic obstructive pulmonary disease, unspecified; Z79.899 Other long term (current) drug therapy; Z79.4 Long term (current) use of insulin; Z79.82 Long term (current) use of aspirin; Z88.8 Allergy status to other drugs, medicaments and biological substances; Z91.09 Other allergy status, other than to drugs and biological substances
CPT/HCPCS: 36415; 80053; 85025; A9270

== ENCOUNTER 2022-05-02 13:44 | Emergency (ER) | payer OTHER ==
[~2022-05-02] VITALS: Ht 175.3 cm; Wt 120.2 kg
[~2022-05-02 13:44] MED LIST changes: +BENADRYL25 M1 PO; +FAMO20 PO
== END 2022-05-02 18:50 | disposition home or self-care (01) ==
LOC: ER 13:44
DX: T78.40XA Allergy, unspecified, initial encounter (principal); X58.XXXA Exposure to other specified factors, initial encounter; R06.02 Shortness of breath; Z88.8 Allergy status to other drugs, medicaments and biological substances; Z88.1 Allergy status to other antibiotic agents; Z91.048 Other nonmedicinal substance allergy status
CPT/HCPCS: 36415; A9270; J0171; J7512

== ENCOUNTER 2022-05-03 22:16 | Emergency (ER) | payer OTHER ==
[~2022-05-03] VITALS: Ht 165.1 cm; Wt 99.8 kg
== END 2022-05-04 00:18 | disposition home or self-care (01) ==
LOC: ER 22:16
DX: R09.89 Other specified symptoms and signs involving the circulatory and respiratory systems (principal); I10 Essential (primary) hypertension; E11.9 Type 2 diabetes mellitus without complications; K21.9 Gastro-esophageal reflux disease without esophagitis; G47.30 Sleep apnea, unspecified; J44.9 Chronic obstructive pulmonary disease, unspecified; Z79.899 Other long term (current) drug therapy; Z88.8 Allergy status to other drugs, medicaments and biological substances; Z91.048 Other nonmedicinal substance allergy status; Z79.84 Long term (current) use of oral hypoglycemic drugs; Z79.82 Long term (current) use of aspirin; Z79.4 Long term (current) use of insulin
CPT/HCPCS: 99283; A9270

== ENCOUNTER 2022-07-25 21:23 | Emergency (ER) | payer OTHER ==
[~2022-07-25] VITALS: Ht 177.8 cm; Wt 127.0 kg
[2022-07-25 21:55] LABS: BASOPHILS ABSOLUTE AUTO 0.05 K/mm3 (0.00-0.23); BASOPHILS PERCENT AUTO 1 % (0-2); EOSINOPHILS ABSOLUTE AUTO 0.33 K/mm3 (0.00-0.68); EOSINOPHILS PERCENT AUTO 4 % (0-6); Hematocrit 39.7 % (37.0-53.0); Hemoglobin 13.4 g/dL (13.5-17.5); IMMATURE GRAN ABSOLUTE AUTO 0.04 K/mm3 (0.00-0.10); IMMATURE GRAN PERCENT AUTO 1 % (0-1); LYMPHOCYTES ABSOLUTE AUTO 2.35 K/mm3 (0.84-5.20); LYMPHOCYTES PERCENT AUTO 28 % (21-46); MONOCYTES ABSOLUTE AUTO 0.73 K/mm3 (0.16-1.47); MONOCYTES PERCENT AUTO 9 % (4-13); Mean Corpuscular HGB 29.6 pg (26.0-34.0); Mean Corpuscular HGB Conc 33.8 g/dL (31.5-36.5); Mean Corpuscular Volume 88 fL (80-100); Mean Platelet Volume 9.2 fL (9.1-12.4); NEUTROPHILS ABSOLUTE AUTO 4.88 K/mm3 (1.96-9.15); NEUTROPHILS PERCENT AUTO 58 % (41-73); Platelet Count 375 K/mm3 (150-400); RDW Coefficient Variation 12.8 % (11.7-14.2); RDW Standard Deviation 41.2 fL (35.1-46.3); Red Blood Cell Count 4.53 M/mm3 (4.30-5.90); White Blood Cell Count 8.38 K/mm3 (4.00-11.30)
[2022-07-25 22:15] LABS: Albumin, Blood 3.6 g/dL (3.4-5.0); Albumin/Globulin Ratio 0.9 (0.8-1.8); Bilirubin, Total 0.2 mg/dL (0.1-1.0); Bun/Creatinine Ratio 23.3 (12.0-20.0); Creatinine, Blood 0.77 mg/dL (0.60-1.20); Potassium, Blood 3.7 mmol/L (3.5-5.5); Total Protein, Blood 7.6 g/dL (6.4-8.2)
[2022-07-26 01:00] VITALS: BP 185/83
== END 2022-07-26 01:34 | disposition home or self-care (01) ==
LOC: ER 21:23
PROVIDERS: Student in an Organized Health Care Education/Training Program
DX: I50.9 Heart failure, unspecified (principal); Z88.8 Allergy status to other drugs, medicaments and biological substances; Z88.1 Allergy status to other antibiotic agents; Z79.899 Other long term (current) drug therapy; Z79.84 Long term (current) use of oral hypoglycemic drugs; Z79.4 Long term (current) use of insulin; Z79.82 Long term (current) use of aspirin
CPT/HCPCS: 71046; 80053; 83880; 84484; 85025; 93005; 93010; 99285-25

== ENCOUNTER → 2022-12-26 | Outpatient (CLI) | payer OTHER | LOC: LAB SHORT 15:00 → LAB 15:00 | DX: E11.65 Type 2 diabetes mellitus with hyperglycemia (principal); Z79.4 Long term (current) use of insulin | CPT/HCPCS: 82043 ==

== ENCOUNTER 2023-02-07 16:43 | Emergency (ER) | payer OTHER ==
[~2023-02-07] VITALS: Ht 177.8 cm; Wt 123.8 kg
[~2023-02-07 16:43] MED LIST changes: -AMLO10 PO; +AMLO5 PO
[2023-02-07] MEDS ORDERED: INSULANPEN SC (18:42)
[2023-02-07 18:57] VITALS: BP 152/77
== END 2023-02-07 20:07 | disposition home or self-care (01) ==
LOC: ER 16:43
DX: S19.9XXA Unspecified injury of neck, initial encounter (principal); I10 Essential (primary) hypertension; E11.9 Type 2 diabetes mellitus without complications; G89.29 Other chronic pain; M54.9 Dorsalgia, unspecified; Z79.82 Long term (current) use of aspirin; Z79.4 Long term (current) use of insulin; Z79.84 Long term (current) use of oral hypoglycemic drugs; Z79.899 Other long term (current) drug therapy; V89.2XXA Person injured in unspecified motor-vehicle accident, traffic, initial encounter
CPT/HCPCS: 72125; 96372; 99284-25; J1885

== ENCOUNTER 2023-12-15 08:14 | Day surgery (SDC) | payer OTHER ==
[~2023-12-15 08:14] MED LIST changes: +Lactated Ringer's 1,000 ML IV ONE
[2023-12-15] MEDS ORDERED: BACL10 (08:55)
[2023-12-15] MEDS ORDERED: ERGO50000 (08:56)
[2023-12-15] MEDS ORDERED: CELE100 (08:56)
[2023-12-15] MEDS ORDERED: HYDCHL25 (08:58)
[2023-12-15] MEDS ORDERED: Norco 10-325 T1 EACH (08:59)
[2023-12-15] MEDS ORDERED: NOVOLOG100 UNIT/3 (09:00)
[2023-12-15] MEDS ORDERED: MULVITA (09:02)
[2023-12-15] MEDS ORDERED: INSULANPEN (09:03)
[2023-12-15] MEDS ORDERED: OLME20 (09:03)
[2023-12-15] MEDS ORDERED: Lidocaine HCl 4% 5 ML SDA ONE (09:23)
[2023-12-15] MEDS ORDERED: propofoL 50 ML IV ONE ×2 (09:30→09:59)
[2023-12-15] MEDS ORDERED: Lactated Ringer's 1,000 ML IV ONE (09:45)
[2023-12-15 11:24] VITALS: BP 134/67
== END 2023-12-15 11:20 | disposition home or self-care (01) ==
LOC: ORSCSDS 08:14
PROVIDERS: Internal Medicine Gastroenterology
PROC: 0DBK8ZX Excision of Ascending Colon, Via Natural or Artificial Opening Endoscopic, Diagnostic (ICD-10-PCS; principal; 2023-12-15 09:30)
PROC: 0DB78ZX Excision of Stomach, Pylorus, Via Natural or Artificial Opening Endoscopic, Diagnostic (ICD-10-PCS; principal; 2023-12-15 09:30)
PROC: 0DBM8ZX Excision of Descending Colon, Via Natural or Artificial Opening Endoscopic, Diagnostic (ICD-10-PCS; principal; 2023-12-15 09:30)
PROC: 0DBL8ZX Excision of Transverse Colon, Via Natural or Artificial Opening Endoscopic, Diagnostic (ICD-10-PCS; principal; 2023-12-15 09:30)
DX: R13.10 Dysphagia, unspecified (principal); Z12.11 Encounter for screening for malignant neoplasm of colon; Z86.0101 Personal history of adenomatous and serrated colon polyps; D12.4 Benign neoplasm of descending colon; D12.2 Benign neoplasm of ascending colon; D12.3 Benign neoplasm of transverse colon; K29.70 Gastritis, unspecified, without bleeding; K57.30 Diverticulosis of large intestine without perforation or abscess without bleeding; I10 Essential (primary) hypertension; K64.4 Residual hemorrhoidal skin tags; E11.9 Type 2 diabetes mellitus without complications; I25.10 Atherosclerotic heart disease of native coronary artery without angina pectoris; G47.33 Obstructive sleep apnea (adult) (pediatric); J44.9 Chronic obstructive pulmonary disease, unspecified; Z79.4 Long term (current) use of insulin; Z79.84 Long term (current) use of oral hypoglycemic drugs; Z79.899 Other long term (current) drug therapy; I48.91 Unspecified atrial fibrillation
CPT/HCPCS: 82947; 88305; 88342; J2001; J2003; J2704; J7120

== ENCOUNTER 2024-02-27 19:27 | Inpatient (IN) | payer OTHER ==
[~2024-02-27] VITALS: Ht 177.8 cm; Wt 122.0 kg
[~2024-02-27 19:27] MED LIST changes: -AMOX-CLAV 875-1 EAC5 PO; -C COMPLEX1000 M1 PO; -HYDROCODONE-AC1 EAC7 PO; -INSULIN LI100 UNIT/6 SC; -JARDIANCE10 MG PO; -MOUNJARO10 MG/0.5 SC; -TORSE20 PO
[2024-02-27 20:13] LABS: BASOPHILS ABSOLUTE AUTO 0.03 K/mm3 (0.00-0.23); BASOPHILS PERCENT AUTO 0 % (0-2); EOSINOPHILS ABSOLUTE AUTO 0.01 K/mm3 (0.00-0.68); EOSINOPHILS PERCENT AUTO 0 % (0-6); Hematocrit 31.6 % (37.0-53.0); Hemoglobin 10.8 g/dL (13.5-17.5); IMMATURE GRAN PERCENT AUTO 1 % (0-1); LYMPHOCYTES ABSOLUTE AUTO 1.07 K/mm3 (0.84-5.20); LYMPHOCYTES PERCENT AUTO 7 % (21-46); MONOCYTES ABSOLUTE AUTO 1.43 K/mm3 (0.16-1.47); MONOCYTES PERCENT AUTO 9 % (4-13); Mean Corpuscular HGB 29.9 pg (26.0-34.0); Mean Corpuscular HGB Conc 34.2 g/dL (31.5-36.5); Mean Corpuscular Volume 88 fL (80-100); Mean Platelet Volume 9.8 fL (9.1-12.4); NEUTROPHILS ABSOLUTE AUTO 12.72 K/mm3 (1.96-9.15); NEUTROPHILS PERCENT AUTO 83 % (41-73); Platelet Count 317 K/mm3 (150-400); RDW Coefficient Variation 13.4 % (11.7-14.2); RDW Standard Deviation 43.5 fL (35.1-46.3); Red Blood Cell Count 3.61 M/mm3 (4.30-5.90); White Blood Cell Count 15.36 K/mm3 (4.00-11.30)
[2024-02-27] MEDS ORDERED: Ketorolac Tromethamine 15mg Vial IV ONE (20:20)
[2024-02-27] MEDS ORDERED: Ipratropium/Albuterol SulF 2.5-0.5MG/3 ML Amp INH ONE (20:20)
[2024-02-27] MEDS ORDERED: Lactated Ringer's 1,000 ML IV ONE (20:20)
[2024-02-27 20:36] LABS: Source, Urine Clean Catch
[2024-02-27 20:38] LABS: Albumin, Blood 2.6 g/dL (3.4-5.0); Albumin/Globulin Ratio 0.6 (0.8-1.8); Bilirubin, Total 0.3 mg/dL (0.1-1.0); Bun/Creatinine Ratio 13.5 (12.0-20.0); Calcium, Blood 8.8 mg/dL (8.5-10.1); Creatinine, Blood 1.48 mg/dL (0.60-1.20); Globulin, Blood 4.4 g/dL (2.2-4.0); Potassium, Blood 3.9 mmol/L (3.5-5.5)
[2024-02-27 20:41] LABS: Appearance, Urine Hazy (Clear); Bilirubin, Urine Neg (Neg); Blood, Urine 2+ (Neg); Color, Urine Yellow (P-Yellow); Glucose Qualitative, Urine Neg (Neg); Ketones, Urine 2+ (Neg); Leukocyte Esterase, Urine Neg (Neg); Nitrite, Urine Neg (Neg); Protein, Urine 3+ (Neg); Urobilinogen, Urine NORM (Normal)
[2024-02-27 20:50] LABS: Amorphous Light (0-Heavy); Bacteria Rare /hpf; Red Blood Cells, Urine 0-2 /hpf (0-2); Squamous Epithelial Cells Rare /hpf (Few); White Blood Cells, Urine 0-2 /hpf (0-5)
[2024-02-27 21:18] LABS: Influenza A, PCR NEGATIVE (NEGATIVE); Influenza B, PCR NEGATIVE (NEGATIVE); Resp Syncytial Virus, PCR NEGATIVE (NEGATIVE); SARS-Cov-2 (COVID-19) PCR, MMC NEGATIVE (NEGATIVE)
[2024-02-27] MEDS ORDERED: CefTRIAXone Sodium 1,000 MG in NS 100 ML IV ONE (21:25)
[2024-02-27] MEDS ORDERED: Azithromycin 500 MG in NS 250 ML IV ONE (21:25)
[2024-02-27] MEDS ORDERED: FLU VACC TS2024-25(6MOS UP)/PF 45 MCG/0.5 ML SYRINGE IM SCH (23:25)
[2024-02-27] MEDS ORDERED: Ipratropium/Albuterol SulF 2.5-0.5MG/3 ML Amp INH PRN (23:25)
[2024-02-27] MEDS ORDERED: Albuterol 2.5 MG/3 ML VIAL INH PRN ×2 (23:30→23:40)
[2024-02-27] MEDS ORDERED: Ipratropium/Albuterol SulF 2.5-0.5MG/3 ML Amp INH SCH (23:40)
[2024-02-28 00:34] LABS: Base Excess Venous -1.9 mmol/L; Bicarbonate Venous 22.9 mmol/L (24.0-30.0); PCO2 Venous 35.5 mmHg (38-42); pH Blood Venous 7.41 (7.34-7.37)
[2024-02-28] MEDS ORDERED: NS 500 ML IV SCH (03:00)
[2024-02-28] MEDS ORDERED: Insulin Human Lispro 100 Units/ML 3ML Syringe SC SCH (07:30)
[2024-02-28 08:24] LABS: Hematocrit 31.9 % (37.0-53.0); Hemoglobin 10.6 g/dL (13.5-17.5); Mean Corpuscular HGB 29.5 pg (26.0-34.0); Mean Corpuscular HGB Conc 33.2 g/dL (31.5-36.5); Mean Corpuscular Volume 89 fL (80-100); Mean Platelet Volume 9.9 fL (9.1-12.4); Platelet Count 313 K/mm3 (150-400); RDW Coefficient Variation 13.4 % (11.7-14.2); RDW Standard Deviation 44.2 fL (35.1-46.3); Red Blood Cell Count 3.59 M/mm3 (4.30-5.90); White Blood Cell Count 15.97 K/mm3 (4.00-11.30)
[2024-02-28 08:37] LABS: Bun/Creatinine Ratio 17.1 (12.0-20.0); Calcium, Blood 8.6 mg/dL (8.5-10.1); Creatinine, Blood 1.23 mg/dL (0.60-1.20); Potassium, Blood 3.8 mmol/L (3.5-5.5)
[2024-02-28] MEDS ORDERED: Enoxaparin 40 MG/0.4 ML SYR SC SCH (09:00)
[2024-02-28] MEDS ORDERED: Lactobacil 2-S.Thermo-Bifido 1 1 Cap PO SCH (09:00)
[2024-02-28] MEDS ORDERED: MethylPREDNISolone Sod Succ 125 MG Vial IV SCH (09:00)
[2024-02-28] MEDS ORDERED: Acetaminophen 325 MG TABLET PO PRN (09:10)
[2024-02-28 14:40] VITALS: BP 147/74
[2024-02-28] MEDS ORDERED: C COMPLEX1000 M1 PO (15:19)
[2024-02-28] MEDS ORDERED: MOUNJARO10 MG/0.5 SC (15:20)
[2024-02-28] MEDS ORDERED: TORSE20 PO (15:22)
--- NOTE | 2024-02-28 15:29 | NUR ---
PT ADMIT TO MEDICAL FLOOR. FLAT AFFECT, SHALLOW BREATHING, PT REQUESTED BREATHING TREATMENT. TREATED GENERAL MALAISE WITH TYLENOL.
[2024-02-28] MEDS ORDERED: TraZODone HCl 100 MG Tab PO PRN (17:15)
[2024-02-28] MEDS ORDERED: Baclofen 10 MG Tab PO PRN (17:15)
[2024-02-28] MEDS ORDERED: HYDROcodone 5-APAP 325 TAB PO PRN (17:20)
[2024-02-28 19:45] VITALS: BP 134/69
[2024-02-28] MEDS ORDERED: CefTRIAXone Sodium 1,000 MG in NS 100 ML IV SCH (21:00)
[2024-02-28] MEDS ORDERED: Gabapentin 300 MG Cap PO SCH (21:00)
[2024-02-28] MEDS ORDERED: Carvedilol 25 MG Tab PO SCH (21:00)
[2024-02-28] MEDS ORDERED: AmLODIPine Besylate 5 MG Tab PO SCH (21:00)
[2024-02-28] MEDS ORDERED: Azithromycin 500 MG in NS 250 ML IV SCH (21:00)
[2024-02-28] MEDS ORDERED: Insulin Glargine-Yfgn 100 Unit/mL 3 ML SYR SC SCH (21:00)
[2024-02-28] MEDS ORDERED: Melatonin 5 MG Tablet PO SCH (21:00)
--- NOTE | 2024-02-29 03:20 | NUR ---
HIGH SCHOOL PROFESSIONAL SUMMARY VSS. LUNG SOUNDS DIMINISHED WITH CONGESTED COUGH. ALERT AND ORIENTED. RECEIVING BRATHING TREATMENTS PER RT AND RECEIVING IV ANTIBIOTICS PER MAY. UP WITH ASSIST TO RESTROOM. ABLE TO REPOSITION SELF IN BED WITHOUT ASSIST. HOB ELEVATED FOR RESP COMFORT. HAS BEEN RESTING QUIETLY WITH FEW INTERRUPTIONS. ACCUCHECK AT HS 260, INSULIN ADMIN ORDERED. CALL LIGHT IN REACH, RAILS UP X 2 AND BED IN LOW POSITION FOR SAFETY. WILL CONT TO MONITOR.
[2024-02-29 03:22] VITALS: BP 147/84
[2024-02-29 05:58] LABS: Hematocrit 31.6 % (37.0-53.0); Hemoglobin 10.8 g/dL (13.5-17.5); Mean Corpuscular HGB 29.5 pg (26.0-34.0); Mean Corpuscular HGB Conc 34.2 g/dL (31.5-36.5); Mean Corpuscular Volume 86 fL (80-100); Mean Platelet Volume 10.1 fL (9.1-12.4); Platelet Count 379 K/mm3 (150-400); RDW Coefficient Variation 13.3 % (11.7-14.2); RDW Standard Deviation 41.8 fL (35.1-46.3); Red Blood Cell Count 3.66 M/mm3 (4.30-5.90); White Blood Cell Count 12.29 K/mm3 (4.00-11.30)
[2024-02-29 06:42] LABS: Ferritin, Serum 358 ng/mL (26-388); Iron Serum 51 ug/dL (65-175); Percent Saturation 26.6 % (20.0-50.0); Total Iron Binding Capacity 192 ug/dL (250-450)
[2024-02-29 06:43] LABS: Albumin, Blood 2.4 g/dL (3.4-5.0); Anion Gap 14 mmol/L (3-11); Blood Urea Nitrogen 25 mg/dL (8-24); Bun/Creatinine Ratio 25.6 (12.0-20.0); CO2, Blood 21 mmol/L (21-32); Calcium, Blood 8.6 mg/dL (8.5-10.1); Chloride, Blood 108 mmol/L (98-108); Creatinine, Blood 0.98 mg/dL (0.60-1.20); Glomerular Filtration Rate 85 (60-); Glucose, Blood 251 mg/dL (70-99); Phosphorus, Blood 2.6 mg/dL (2.5-4.9); Potassium, Blood 3.9 mmol/L (3.5-5.5); Sodium, Blood 139 mmol/L (136-145)
[2024-02-29 07:46] VITALS: BP 129/72
[2024-02-29] MEDS ORDERED: Ascorbic Acid 500 MG Tab PO SCH (09:00)
[2024-02-29] MEDS ORDERED: Losartan Potassium 50 MG Tab PO SCH (09:00)
[2024-02-29] MEDS ORDERED: Aspirin 81 MG Chew PO SCH (09:00)
[2024-02-29] MEDS ORDERED: Multivitamins 1 Tab PO SCH (09:00)
[2024-02-29] MEDS ORDERED: Torsemide 20 MG TAB PO SCH (09:00)
[2024-02-29] MEDS ORDERED: HydrALAZINE HCl 50 MG Tab PO SCH (09:00)
[2024-02-29] MEDS ORDERED: Cholecalciferol 1000 Unit Tablet (=25MCG) PO SCH (09:00)
--- NOTE | 2024-02-29 11:33 | NUR ---
PT REPORTS FEELING MUCH BETTER TODAY. HAD COUGHING EPISODE LAST NIGHT AND STATES THAT AFTER THAT, HE "CAN BREATH". PT IS CURRENTLY SATTING >90% ON R/A
[2024-02-29] MEDS ORDERED: HYDROCODONE-AC1 EAC7 PO (13:34)
[2024-02-29] MEDS ORDERED: AMOX-CLAV 875-1 EAC5 PO (13:35)
[2024-02-29] MEDS ORDERED: GABA300 PO (13:45)
[2024-02-29 15:30] VITALS: BP 137/67
[2024-02-29] MEDS ORDERED: Insulin Human Lispro 100 Units/ML 3ML Syringe SC ONE ×2 (18:00→22:45)
[2024-02-29] MEDS ORDERED: Insulin Human Lispro 100 Units/ML 3ML Syringe SC SCH (18:00)
--- NOTE | 2024-02-29 18:45 | NUR ---
LATE ENTRY 1800- DR. MATT UPDATED INSULIN SLIDING SCALE TO HSS. PT TREATED WITH LSS PRIOR TO ORDER CHANGE. PER DR. MATT, GIVE 4 ADDITIONAL UNITS TO COVER CBG 360 FOR DINNER MEAL. FOR TOTAL OF 8 UNITS.
--- NOTE | 2024-02-29 18:50 | NUR ---
PT OVERALL FEELING MUCH BETTER TODAY. R/A AT REST. PT AMBULATED AROUND ROOM WITH FWW. PT DID BECOME SOB AND REQUIRED TIME TO RECOVER BUT WAS ABLE TO DO SO WITHOUT USE OF O2. PT UNDERSTANDS OWN LIMITATIONS, CALLS APPROPRIATELY. NON PRODUCTIVE INTERMITTENT COUGH, PT DID REQUIRE PRN BREATHING TREATMENTS FROM WHEEZING AND TIGHT CHEST. BACK PAIN TREATED PER EMAR. CBG >350 MD AWARE, NEW INSULIN ORDERS.
[2024-02-29 20:37] VITALS: BP 124/67
[2024-02-29] MEDS ORDERED: MethylPREDNISolone Sod Succ 125 MG Vial IV SCH (21:00)
--- NOTE | 2024-02-29 22:45 | NUR ---
HS ACCU CHECK 418, RECEIVED 40 U GLARGINE INSULIN. NOTIFIED, ORDERED 6 UNITS OF HUMALOG INSULIN X 1.
--- NOTE | 2024-03-01 04:13 | NUR ---
SWIMMING POOL SERVICEPERSON SUMMARY VSS. HS ACCU CHECK WAS 418. NOTIFIED AND ONE TIME INSULIN WAS ORDERED WITH HS GLARGINE INSULIN. IV ANTIBIOTICS CONTINUE -SEE MAY. LUNG SOUNDS REMAIN DIMINISHED BUT LESS CONGESTED COUGH NOTED COMPARED WITH 24 HR AGO. UP AD MARSHALL, APPEARS MORE STEADY THAN YESTERDAY. NOTE ON ROOM AIR, CPAP AT NIGHT WITH RT TREATMENTS. HAS BEEN RESTING QUIETLY WITH LESS NOTED INTERRUPTIONS THAN LAST NIGHT. ABLE TO REPOSITION SELF IN BED WITHOUT ASSIST. HOB ELEVATD. RAILS UP X 2, BED IN LOW POSITION AND CALL LIGHT IN REACH FOR SAFETY. WILL CONTINUE TO MONITOR
[2024-03-01 04:41] VITALS: BP 147/71
[2024-03-01 06:06] LABS: Bun/Creatinine Ratio 36.2 (12.0-20.0); Calcium, Blood 8.6 mg/dL (8.5-10.1); Creatinine, Blood 1.16 mg/dL (0.60-1.20); Potassium, Blood 3.8 mmol/L (3.5-5.5)
[2024-03-01 07:04] VITALS: BP 162/78
[2024-03-01 16:02] VITALS: BP 162/85
--- NOTE | 2024-03-01 16:22 | NUR ---
PT SHOWS IMPROVEMENT OVER THIS SHIFT. AMBULATES IN HALLWAY WITH FWW, AWARE OF LIMITATIONS, PT BECAME SOB AND WEAK AFTER 100 FT WALK. REMAINED ON R/A. CPAP OVERNIGHT. PT REPORTS FEELING BETTER OVERALL. CBG REMAINS IN 300S. AWARE. PT TAKES WEEKLY MONJARO INJECTIONS AT HOME ON THURSDAYS, LAST DOSE DUE 02/28. PER PT, HOME CBG USUALLY AROUND 150. WILL CONTINUE TO TREAT PER EMAR
--- NOTE | 2024-03-01 19:28 | NUR ---
PER SNEHAL HILLMAN TO D/C TELE
[2024-03-01 19:29] VITALS: BP 152/69
[2024-03-02 03:55] VITALS: BP 131/63
[2024-03-02 07:28] VITALS: BP 137/70
--- NOTE | 2024-03-02 07:50 | NUR ---
SHIFT SUMMARY PT RIGHT AC IV INFILTRATED APPROX 2099. CHANGED IV INFUSION TO LEFT AC IV. APPROX 2109, LEFT AC IV INFILTRATED. AFTER TWO ATTEMPTS TO PLACE A NEW IV BY THIS RN AND 3 ATTEMPTS FROM NIDHI BOYD, AALIYAH Burns RN WAS ABLE TO PLACE A 22G IN PT S RIGHT FOREARM. 05, ROCEPHIN STARTED. CALLED PHARMACY TO INFORM THEM OF START TIME IN CASE NEXT DOSE TIME NEEDS TO BE ADJUSTED.
[2024-03-02] MEDS ORDERED: Insulin Glargine-Yfgn 100 Unit/mL 3 ML SYR SC SCH (08:30)
[2024-03-02] MEDS ORDERED: PredniSONE 20 MG Tab PO SCH (09:00)
[2024-03-02] MEDS ORDERED: Empagliflozin 10 MG TAB PO SCH (09:00)
[2024-03-02] MEDS ORDERED: Insulin Human Lispro 100 Units/ML 3ML Syringe SC SCH (11:30)
[2024-03-02] MEDS ORDERED: JARDIANCE10 MG PO (13:04)
[2024-03-02] MEDS ORDERED: PRED20 PO (13:10)
[2024-03-02] MEDS ORDERED: INSULIN LI100 UNIT/6 SC (13:13)
--- NOTE | 2024-03-02 14:38 | NUR ---
PT AWAKE DURING SHIFT REPORT, UP WALKING AROUND IN RM. ADMITTED FOR PNM WITH HYPOXIA; IMPROVED. PT ABLE TO D/C TO HOME. INSULIN ORDERS ADJUSTED AND DISCUSSED WITH PT R/T STEROID USE AT THIS TIME. PT VERBALIZED UNDERSTANDING TO DR RAMIRES AND THIS RN. PT REMAINED ON RA WNL'S. D/C ORDERS PLACED. MEDS FAXED TO [facility] PER PT REQUEST. D/C INSTRUCTIONS REVIEWED WITH PT; VERBALIZED UNDERSTANDING. PT NOTIFIED FAMILY FOR CLOTHES AND RIDE HOME. PT ABLE TO DRESS HIMSELF AND GATHERED ALL BELONGINGS. PT ASSISTED OUT VIA W/C TO FAMILY CAR, BELONGINGS IN HAND.
== END 2024-03-02 14:38 | disposition home or self-care (01) | DRG 871 ==
LOC: ER 19:27 → ERHOLD 19:28 → MEDS 19:28 → ENPENDDIS 03-02 11:30 → MEDS 03-02 14:38
PROVIDERS: Emergency Medicine; Internal Medicine; Student in an Organized Health Care Education/Training Program; ADMIT Internal Medicine
DX: A41.9 Sepsis, unspecified organism (principal); J18.9 Pneumonia, unspecified organism; J96.01 Acute respiratory failure with hypoxia; N17.9 Acute kidney failure, unspecified; N39.0 Urinary tract infection, site not specified; J44.1 Chronic obstructive pulmonary disease with (acute) exacerbation; I50.32 Chronic diastolic (congestive) heart failure; J44.0 Chronic obstructive pulmonary disease with (acute) lower respiratory infection; Z68.37 Body mass index [BMI] 37.0-37.9, adult; Z99.81 Dependence on supplemental oxygen; F43.10 Post-traumatic stress disorder, unspecified; F41.0 Panic disorder [episodic paroxysmal anxiety]; K21.9 Gastro-esophageal reflux disease without esophagitis; F32.A Depression, unspecified; M54.9 Dorsalgia, unspecified; G89.29 Other chronic pain; E11.65 Type 2 diabetes mellitus with hyperglycemia; M19.90 Unspecified osteoarthritis, unspecified site; G47.33 Obstructive sleep apnea (adult) (pediatric); Z96.652 Presence of left artificial knee joint; R65.20 Severe sepsis without septic shock; D64.9 Anemia, unspecified; I11.0 Hypertensive heart disease with heart failure; E66.9 Obesity, unspecified; G47.00 Insomnia, unspecified; E11.40 Type 2 diabetes mellitus with diabetic neuropathy, unspecified; R41.0 Disorientation, unspecified; R50.9 Fever, unspecified; S09.90XA Unspecified injury of head, initial encounter; Z90.89 Acquired absence of other organs; Z87.442 Personal history of urinary calculi; Z88.1 Allergy status to other antibiotic agents; Z88.8 Allergy status to other drugs, medicaments and biological substances; Z91.048 Other nonmedicinal substance allergy status; Z79.899 Other long term (current) drug therapy; Z79.82 Long term (current) use of aspirin; Z79.84 Long term (current) use of oral hypoglycemic drugs; Z79.891 Long term (current) use of opiate analgesic; Z79.4 Long term (current) use of insulin; Z90.49 Acquired absence of other specified parts of digestive tract; Z98.890 Other specified postprocedural states; X58.XXXA Exposure to other specified factors, initial encounter
CPT/HCPCS: 0241U; 36415; 70450; 71045; 71046; 80048; 80053; 80069; 81001; 82607; 82728; 82746; 82803; 82947; 83036; 83540; 83550; 83605; 83735; 83880; 84145; 84484; 85025; 85027; 87040; 93005; 93010; 94640; 94660; 94664; 94762; 96365; 96375; 99285-25; A9270; C8929; J0456; J0696; J1650; J1815; J1885; J2919; J7040; J7050; J7120; J7512; Q9957

== ENCOUNTER → 2024-02-27 | Outpatient (CLI) | payer OTHER ==
[~2024-02-27] MED LIST changes: +AMOX-CLAV 875-1 EAC5 PO; +ASPIR 8181 M1 PO; +BACL10 PO; +C COMPLEX1000 M1 PO; +CELE100; +HYDCHL12.5 PO; +HYDROCODONE-AC1 EAC7 PO; +INSULIN LI100 UNIT/6 SC; +JARDIANCE10 MG PO; -Lactated Ringer's 1,000 ML IV ONE; +MOUNJARO10 MG/0.5 SC; +MULVITA PO; +NOVOLOG100 UNIT/3; +OLME20 PO; +POTASSIUM CITR15 ME1 PO; -POTASSIUM CITR15 MEQ PO; +TORSE20 PO; +VITAMIN D325 MC3 PO
[2024-02-27 12:31] LABS: BASOPHILS ABSOLUTE AUTO 0.03 K/mm3 (0.00-0.23); BASOPHILS PERCENT AUTO 0 % (0-2); EOSINOPHILS PERCENT AUTO 0 % (0-6); Hematocrit 32.6 % (37.0-53.0); Hemoglobin 10.9 g/dL (13.5-17.5); IMMATURE GRAN ABSOLUTE AUTO 0.15 K/mm3 (0.00-0.10); IMMATURE GRAN PERCENT AUTO 1 % (0-1); LYMPHOCYTES PERCENT AUTO 11 % (21-46); MONOCYTES ABSOLUTE AUTO 1.28 K/mm3 (0.16-1.47); MONOCYTES PERCENT AUTO 10 % (4-13); Mean Corpuscular HGB 29.7 pg (26.0-34.0); Mean Corpuscular HGB Conc 33.4 g/dL (31.5-36.5); Mean Corpuscular Volume 89 fL (80-100); Mean Platelet Volume 9.5 fL (9.1-12.4); NEUTROPHILS ABSOLUTE AUTO 10.44 K/mm3 (1.96-9.15); NEUTROPHILS PERCENT AUTO 79 % (41-73); Platelet Count 319 K/mm3 (150-400); RDW Coefficient Variation 13.5 % (11.7-14.2); RDW Standard Deviation 44.2 fL (35.1-46.3); Red Blood Cell Count 3.67 M/mm3 (4.30-5.90)
[2024-02-27 12:45] LABS: Albumin, Blood 2.7 g/dL (3.4-5.0); Albumin/Globulin Ratio 0.6 (0.8-1.8); Bilirubin, Total 0.3 mg/dL (0.1-1.0); Bun/Creatinine Ratio 13.6 (12.0-20.0); Calcium, Blood 8.6 mg/dL (8.5-10.1); Creatinine, Blood 1.76 mg/dL (0.60-1.20); Globulin, Blood 4.5 g/dL (2.2-4.0); Potassium, Blood 3.9 mmol/L (3.5-5.5); Total Protein, Blood 7.2 g/dL (6.4-8.2)
== END ==
LOC: LAB 12:02 → LAB SHORT 12:02
PROVIDERS: Physician Assistant
DX: N39.0 Urinary tract infection, site not specified (principal); E11.40 Type 2 diabetes mellitus with diabetic neuropathy, unspecified; E11.65 Type 2 diabetes mellitus with hyperglycemia; R41.0 Disorientation, unspecified; R50.9 Fever, unspecified
CPT/HCPCS: 80053; 83036; 83605; 85025; 87040; 87086

== ENCOUNTER 2024-07-04 07:47 | Emergency (ER) | payer OTHER ==
[~2024-07-04] VITALS: Ht 177.8 cm; Wt 117.9 kg
[~2024-07-04 07:47] MED LIST changes: +AMOX-CLAV 875-1 EAC5 PO; +C COMPLEX1000 M1 PO; +HYDROCODONE-AC1 EAC7 PO; +INSULIN LI100 UNIT/6 SC; +JARDIANCE10 MG PO; +MOUNJARO10 MG/0.5 SC; +TORSE20 PO
[2024-07-04] MEDS ORDERED: Ondansetron HCl 2 MG / ML 2ML Vial IV ONE (08:05)
[2024-07-04] MEDS ORDERED: Morphine Sulfate 4 MG/1 ML Injection IV ONE (08:05)
[2024-07-04] MEDS ORDERED: NS 1,000 ML IV SCH (08:10)
[2024-07-04 08:30] LABS: BASOPHILS ABSOLUTE AUTO 0.04 K/mm3 (0.00-0.23); BASOPHILS PERCENT AUTO 0 % (0-2); EOSINOPHILS ABSOLUTE AUTO 0.09 K/mm3 (0.00-0.68); EOSINOPHILS PERCENT AUTO 1 % (0-6); Hematocrit 40.8 % (37.0-53.0); Hemoglobin 13.7 g/dL (13.5-17.5); IMMATURE GRAN ABSOLUTE AUTO 0.03 K/mm3 (0.00-0.10); IMMATURE GRAN PERCENT AUTO 0 % (0-1); LYMPHOCYTES ABSOLUTE AUTO 1.44 K/mm3 (0.84-5.20); LYMPHOCYTES PERCENT AUTO 12 % (21-46); MONOCYTES ABSOLUTE AUTO 0.66 K/mm3 (0.16-1.47); MONOCYTES PERCENT AUTO 5 % (4-13); Mean Corpuscular HGB 29.2 pg (26.0-34.0); Mean Corpuscular HGB Conc 33.6 g/dL (31.5-36.5); Mean Corpuscular Volume 87 fL (80-100); Mean Platelet Volume 9.3 fL (9.1-12.4); NEUTROPHILS ABSOLUTE AUTO 10.31 K/mm3 (1.96-9.15); NEUTROPHILS PERCENT AUTO 82 % (41-73); Platelet Count 393 K/mm3 (150-400); RDW Standard Deviation 40.9 fL (35.1-46.3); Red Blood Cell Count 4.69 M/mm3 (4.30-5.90); White Blood Cell Count 12.57 K/mm3 (4.00-11.30)
[2024-07-04 08:48] LABS: Albumin, Blood 3.8 g/dL (3.4-5.0); Albumin/Globulin Ratio 1.1 (0.8-1.8); Bilirubin, Total 0.4 mg/dL (0.1-1.0); Bun/Creatinine Ratio 14.1 (12.0-20.0); Calcium, Blood 8.7 mg/dL (8.5-10.1); Creatinine, Blood 1.49 mg/dL (0.60-1.20); Globulin, Blood 3.6 g/dL (2.2-4.0); Potassium, Blood 3.9 mmol/L (3.5-5.5); Total Protein, Blood 7.4 g/dL (6.4-8.2)
[2024-07-04 09:18] LABS: Source, Urine Clean Catch
[2024-07-04 09:21] LABS: Appearance, Urine Clear (Clear); Bilirubin, Urine Neg (Neg); Blood, Urine Neg (Neg); Color, Urine Yellow (P-Yellow); Glucose Qualitative, Urine Neg (Neg); Ketones, Urine 3+ (Neg); Leukocyte Esterase, Urine Neg (Neg); Nitrite, Urine Neg (Neg); Protein, Urine 2+ (Neg); Urobilinogen, Urine NORM (Normal)
[2024-07-04 09:29] LABS: Bacteria Not Seen /hpf; Hyaline Casts 0-2 /lpf (0-2); Red Blood Cells, Urine 0-2 /hpf (0-2); Squamous Epithelial Cells Rare /hpf (Few); White Blood Cells, Urine 0-2 /hpf (0-5)
[2024-07-04 09:44] LABS: CORONAVIRUS COVID-19 AG Negative (NEGATIVE); INFLUENZA A AG Negative (NEGATIVE); INFLUENZA B AG Negative (NEGATIVE)
[2024-07-04] MEDS ORDERED: Metoclopramide HCl 5MG / ML 2ML Vial IV ONE (10:35)
[2024-07-04 12:30] VITALS: BP 126/77
[2024-07-04] MEDS ORDERED: METO10 PO (12:30)
[2024-07-05] MEDS ORDERED: DULO60 PO ×2 (00:16)
[2024-07-05] MEDS ORDERED: GABA300 PO ×2 (01:51)
[2024-07-05] MEDS ORDERED: Norco 10-325 T1 EACH PO (02:13)
[2024-07-05] MEDS ORDERED: BUPRENORPHN-NA1 EACH UD ×2 (02:16)
[2024-07-05] MEDS ORDERED: IPRAT-ALBUT 0.5-3 ML NEB ×2 (02:21)
[2024-07-05] MEDS ORDERED: LIDO700A20 TOP (02:22)
[2024-07-05] MEDS ORDERED: LORA10ER PO ×2 (02:30)
[2024-07-05] MEDS ORDERED: MAGNESIUM OXID500 MG PO ×2 (02:30)
[2024-07-05] MEDS ORDERED: NALOXONE HCL4 MG ×2 (02:33)
[2024-07-05] MEDS ORDERED: NOVOLOG FL100 UNIT/3 SC ×2 (02:42)
== END 2024-07-04 12:36 | disposition home or self-care (01) ==
LOC: ER 07:47
PROVIDERS: Emergency Medicine
DX: K56.600 Partial intestinal obstruction, unspecified as to cause (principal); K52.9 Noninfective gastroenteritis and colitis, unspecified; I11.0 Hypertensive heart disease with heart failure; I50.30 Unspecified diastolic (congestive) heart failure; E11.9 Type 2 diabetes mellitus without complications; K21.9 Gastro-esophageal reflux disease without esophagitis; G47.30 Sleep apnea, unspecified; J44.9 Chronic obstructive pulmonary disease, unspecified; F43.10 Post-traumatic stress disorder, unspecified; Z79.4 Long term (current) use of insulin; Z79.52 Long term (current) use of systemic steroids; Z79.82 Long term (current) use of aspirin; Z79.84 Long term (current) use of oral hypoglycemic drugs; Z88.1 Allergy status to other antibiotic agents; Z88.8 Allergy status to other drugs, medicaments and biological substances
CPT/HCPCS: 71045; 74177; 80053; 81001; 83690; 83880; 85025; 87428-QW; 93005; 93010; 96361; 96374-59; 96375; 99284-25; J2270; J2405; J2765; J7030; Q9967

== ENCOUNTER 2024-07-04 19:59 | Inpatient (IN) | payer OTHER ==
[~2024-07-04] VITALS: Ht 177.8 cm; Wt 117.9 kg
[~2024-07-04 19:59] MED LIST changes: +METO10 PO
[2024-07-04 20:37] LABS: BASOPHILS ABSOLUTE AUTO 0.04 K/mm3 (0.00-0.23); BASOPHILS PERCENT AUTO 0 % (0-2); EOSINOPHILS ABSOLUTE AUTO 0.35 K/mm3 (0.00-0.68); EOSINOPHILS PERCENT AUTO 3 % (0-6); Hemoglobin 13.9 g/dL (13.5-17.5); IMMATURE GRAN ABSOLUTE AUTO 0.02 K/mm3 (0.00-0.10); IMMATURE GRAN PERCENT AUTO 0 % (0-1); LYMPHOCYTES PERCENT AUTO 16 % (21-46); MONOCYTES ABSOLUTE AUTO 0.93 K/mm3 (0.16-1.47); MONOCYTES PERCENT AUTO 8 % (4-13); Mean Corpuscular HGB 29.4 pg (26.0-34.0); Mean Corpuscular HGB Conc 33.9 g/dL (31.5-36.5); Mean Corpuscular Volume 87 fL (80-100); NEUTROPHILS ABSOLUTE AUTO 8.12 K/mm3 (1.96-9.15); NEUTROPHILS PERCENT AUTO 72 % (41-73); Platelet Count 384 K/mm3 (150-400); RDW Coefficient Variation 13.1 % (11.7-14.2); RDW Standard Deviation 41.1 fL (35.1-46.3); Red Blood Cell Count 4.72 M/mm3 (4.30-5.90); White Blood Cell Count 11.26 K/mm3 (4.00-11.30)
[2024-07-04 21:08] LABS: Albumin, Blood 3.8 g/dL (3.4-5.0); Bilirubin, Total 0.5 mg/dL (0.1-1.0); Bun/Creatinine Ratio 12.8 (12.0-20.0); Calcium, Blood 8.7 mg/dL (8.5-10.1); Creatinine, Blood 1.49 mg/dL (0.60-1.20); Globulin, Blood 3.8 g/dL (2.2-4.0); Potassium, Blood 3.7 mmol/L (3.5-5.5); Total Protein, Blood 7.6 g/dL (6.4-8.2)
[2024-07-04 22:49] LABS: Source, Urine Clean Catch
[2024-07-04 22:54] LABS: Bilirubin, Urine Neg (Neg); Blood, Urine Neg (Neg); Glucose Qualitative, Urine Neg (Neg); Ketones, Urine Neg (Neg); Leukocyte Esterase, Urine Neg (Neg); Nitrite, Urine Neg (Neg); Protein, Urine 2+ (Neg); Specific Gravity, Urine 1.025 (1.003-1.022); Urobilinogen, Urine NORM (Normal)
[2024-07-04 22:55] LABS: Appearance, Urine Clear (Clear); Color, Urine Yellow (P-Yellow)
[2024-07-04] MEDS ORDERED: HYDROmorphone HCl/Pf 1MG SYR IV ONE (23:00)
[2024-07-04] MEDS ORDERED: Ketorolac Tromethamine 15mg Vial IV ONE (23:00)
[2024-07-04 23:04] LABS: Bacteria Not Seen /hpf; Red Blood Cells, Urine Not Seen /hpf (0-2); Squamous Epithelial Cells Not Seen /hpf (Few); White Blood Cells, Urine Not Seen /hpf (0-5)
[2024-07-04] MEDS ORDERED: Ondansetron HCl 2 MG / ML 2ML Vial ONE (23:08)
[2024-07-04] MEDS ORDERED: Morphine Sulfate 4 MG/1 ML Injection IV PRN (23:10)
[2024-07-04] MEDS ORDERED: Acetaminophen 325 MG TABLET PO PRN (23:10)
[2024-07-04] MEDS ORDERED: Ondansetron HCl 2 MG / ML 2ML Vial IV PRN (23:10)
[2024-07-04] MEDS ORDERED: Naloxone HCl 0.4MG / ML 1ML Vial IV PRN (23:10)
[2024-07-05] MEDS ORDERED: Insulin Regular 100 UNIT/ML 10ML Vial SC SCH
[2024-07-05] MEDS ORDERED: DULO60 PO ×2 (00:16)
[2024-07-05 01:07] VITALS: BP 151/81
[2024-07-05] MEDS ORDERED: Calcium Carbonate 500 MG Tab Chew PO PRN (01:30)
[2024-07-05] MEDS ORDERED: Lactated Ringer's 1,000 ML IV SCH ×2 (01:35→10:25)
[2024-07-05] MEDS ORDERED: GABA300 PO ×2 (01:51)
[2024-07-05] MEDS ORDERED: Norco 10-325 T1 EACH PO (02:13)
[2024-07-05] MEDS ORDERED: BUPRENORPHN-NA1 EACH UD ×2 (02:16)
[2024-07-05] MEDS ORDERED: IPRAT-ALBUT 0.5-3 ML NEB ×2 (02:21)
[2024-07-05] MEDS ORDERED: LIDO700A20 TOP (02:22)
[2024-07-05] MEDS ORDERED: LORA10ER PO ×2 (02:30)
[2024-07-05] MEDS ORDERED: MAGNESIUM OXID500 MG PO ×2 (02:30)
[2024-07-05] MEDS ORDERED: NALOXONE HCL4 MG ×2 (02:33)
[2024-07-05] MEDS ORDERED: NOVOLOG FL100 UNIT/3 SC ×2 (02:42)
[2024-07-05] MEDS ORDERED: TraZODone HCl 50 MG Tab PO ONE (02:50)
[2024-07-05] MEDS ORDERED: Melatonin 5 MG Tablet PO ONE (02:55)
[2024-07-05 04:42] VITALS: BP 143/79
[2024-07-05 04:47] LABS: Adenovirus F 40/41 Not Detected (NOT DETECT); Astrovirus Not Detected (NOT DETECT); Campylobacter Sp Not Detected (NOT DETECT); Cryptosporidium Not Detected (NOT DETECT); Cyclospora Cayetanensis Not Detected (NOT DETECT); E. Coli O157 Not Detected (NOT DETECT); Entamoeba Histolytica Not Detected (NOT DETECT); Enteroaggregative E. coli-EAEC Not Detected (NOT DETECT); Enteropathogenic E. coli-EPEC Not Detected (NOT DETECT); Enterotoxigenic E. coli-ETEC Not Detected (NOT DETECT); Giardia Lamblia Not Detected (NOT DETECT); Norovirus GI/GII Not Detected (NOT DETECT); Plesiomonas Shigelloides Not Detected (NOT DETECT); Rotavirus A Not Detected (NOT DETECT); Salmonella Sp Not Detected (NOT DETECT); Sapovirus Not Detected (NOT DETECT); Shiga Toxin-prod E. coli-STEC Not Detected (NOT DETECT); Shigella/Enteroin E. coli-EIEC Not Detected (NOT DETECT); Vibrio Cholerae Not Detected (NOT DETECT); Vibrio Sp Not Detected (NOT DETECT); Yersinia Enterocolitica Not Detected (NOT DETECT)
[2024-07-05 05:47] LABS: BASOPHILS ABSOLUTE AUTO 0.04 K/mm3 (0.00-0.23); BASOPHILS PERCENT AUTO 0 % (0-2); EOSINOPHILS ABSOLUTE AUTO 0.32 K/mm3 (0.00-0.68); EOSINOPHILS PERCENT AUTO 4 % (0-6); Hematocrit 37.6 % (37.0-53.0); Hemoglobin 12.9 g/dL (13.5-17.5); IMMATURE GRAN ABSOLUTE AUTO 0.01 K/mm3 (0.00-0.10); IMMATURE GRAN PERCENT AUTO 0 % (0-1); LYMPHOCYTES ABSOLUTE AUTO 2.17 K/mm3 (0.84-5.20); LYMPHOCYTES PERCENT AUTO 24 % (21-46); MONOCYTES ABSOLUTE AUTO 1.02 K/mm3 (0.16-1.47); MONOCYTES PERCENT AUTO 11 % (4-13); Mean Corpuscular HGB Conc 34.3 g/dL (31.5-36.5); Mean Corpuscular Volume 87 fL (80-100); Mean Platelet Volume 9.2 fL (9.1-12.4); NEUTROPHILS ABSOLUTE AUTO 5.47 K/mm3 (1.96-9.15); NEUTROPHILS PERCENT AUTO 61 % (41-73); Platelet Count 341 K/mm3 (150-400); RDW Coefficient Variation 13.1 % (11.7-14.2); RDW Standard Deviation 41.4 fL (35.1-46.3); White Blood Cell Count 9.03 K/mm3 (4.00-11.30)
[2024-07-05 06:20] LABS: Albumin, Blood 3.3 g/dL (3.4-5.0); Bilirubin, Total 0.3 mg/dL (0.1-1.0); Calcium, Blood 8.2 mg/dL (8.5-10.1); Creatinine, Blood 1.36 mg/dL (0.60-1.20); Globulin, Blood 3.3 g/dL (2.2-4.0); Potassium, Blood 3.4 mmol/L (3.5-5.5); Total Protein, Blood 6.6 g/dL (6.4-8.2)
[2024-07-05 07:16] VITALS: BP 141/74
[2024-07-05] MEDS ORDERED: Potassium Chl 20MEQ/Water100ML 100 ML IV STA (07:21)
[2024-07-05] MEDS ORDERED: NS 250 ML IV PRN (07:25)
[2024-07-05] MEDS ORDERED: Docusate Sodium 100 MG Cap PO SCH (09:00)
--- NOTE | 2024-07-05 19:24 | NUR ---
SHIFT SUMMARY- PT ALERT AND ORIENTED, INDEPENDENT IN THE ROOM. DR MCKEON CAME TO SEE HIM THIS EVENING AND GAVE HIM A CLEAR LIQUID DIET WITH AN ADVANCE DIET TOLLERATED ORDER. PT HAD A CLEAR LIQUID DINNER. CALLED DR HAWHTORNE AND PASSED ON THE PT IS CLEARED FOR FOOD, BG CHECKS CHANGED TO AC&HS WELL INSULIN, AND LR DC'D. PT IS IN BED, HE DRESSED HIMSELF EARLIER TODAY IN HIS CLOTHES HE IS SITTING UP IN HIS BED WITH SEVERAL BLANKETS COVERING HIM WELL. HE REQUESTED AN INCREASE INB THE TEMP IN HIS ROOM. TEMP WAS ADJUSTED AT THE TIME OF BEDSIDE REPORT. PT DENIES INCREASED PAIN OR NAUSEA AFTER THE CLEAR LIQUID TRAY. NO S&S OF DISTRESS NOTED AT THE TIME OF BEDSIDE REPORT.
[2024-07-05 19:30] VITALS: BP 142/78
[2024-07-05] MEDS ORDERED: Insulin Glargine-Yfgn 100 Unit/mL 3 ML SYR SC SCH (21:00)
[2024-07-05] MEDS ORDERED: Melatonin 5 MG Tablet PO SCH (21:00)
[2024-07-05] MEDS ORDERED: TraZODone HCl 50 MG Tab PO SCH (21:00)
[2024-07-05] MEDS ORDERED: Melatonin 3 MG Tab PO SCH (21:00)
--- NOTE | 2024-07-06 04:03 | NUR ---
SHIFT SUMMARY PATIENT HAD NO ACUTE CHANGES. INDEPENDENT IN ROOM. DENIES CHEST PAIN, SOB, AND N/V. VSS/AFEBRILE. CBG 173. REPORTS HAVING MULTIPLE LOOSE STOOLS. TUMS GIVEN X ONE FOR ACID REFLUX. REPORTED BACK/LEG PAIN AND IV MORPHINE 2 MG GIVEN PER EMAR. CALL LIGHT IN REACH. BED IN LOWEST POSITION. WILL CONTINUE TO MONITOR UNTIL DAY SHIFT NURSE ASSUMES CARE.
[2024-07-06 04:30] VITALS: BP 146/76
[2024-07-06] MEDS ORDERED: Pantoprazole Sodium 40 MG Injection IV SCH (06:00)
[2024-07-06 07:17] VITALS: BP 163/78
[2024-07-06] MEDS ORDERED: Insulin Human Lispro 100 Units/ML 3ML Syringe SC SCH (07:30)
[2024-07-06 07:58] LABS: Hematocrit 37.9 % (37.0-53.0); Hemoglobin 12.8 g/dL (13.5-17.5); Mean Corpuscular HGB 29.6 pg (26.0-34.0); Mean Corpuscular HGB Conc 33.8 g/dL (31.5-36.5); Mean Corpuscular Volume 88 fL (80-100); Mean Platelet Volume 9.2 fL (9.1-12.4); Platelet Count 330 K/mm3 (150-400); RDW Standard Deviation 41.9 fL (35.1-46.3); Red Blood Cell Count 4.32 M/mm3 (4.30-5.90); White Blood Cell Count 8.35 K/mm3 (4.00-11.30)
[2024-07-06 08:32] LABS: Bun/Creatinine Ratio 11.5 (12.0-20.0); Calcium, Blood 8.4 mg/dL (8.5-10.1); Creatinine, Blood 1.13 mg/dL (0.60-1.20); Potassium, Blood 3.5 mmol/L (3.5-5.5)
[2024-07-06] MEDS ORDERED: Ondansetron 4 MG SoluTab MM ONE (10:25)
[2024-07-06] MEDS ORDERED: Banana Flakes/Tos 1 EA Powder Pack PO SCH (11:00)
[2024-07-06] MEDS ORDERED: BANATROL PLUS1 EAC1 PO ×2 (12:09)
[2024-07-06] MEDS ORDERED: AZIT500 PO ×2 (12:10)
--- NOTE | 2024-07-06 14:51 | NUR ---
DISCHARGE NOTE- PT WAS GIVEN VERBAL AND WRITTEN DISCHARGE INFO AND ACKNOWLEDGED UNDERSTANDING OF THEM. IV DC'D PRIOR TO DISCHARGE. PT ESCORTED OUT VIA WC BY THE CIRCUIT BOARD DRAFTER, NO S&S OF DISTRESS NOTED AT THE TIME OF DISCHARGE.
== END 2024-07-06 13:09 | disposition home or self-care (01) | DRG 389 ==
LOC: ER 19:59 → MEDS 23:07
PROVIDERS: Family Medicine; Student in an Organized Health Care Education/Training Program; ADMIT Student in an Organized Health Care Education/Training Program
DX: K56.600 Partial intestinal obstruction, unspecified as to cause (principal); I13.0 Hypertensive heart and chronic kidney disease with heart failure and stage 1 through stage 4 chronic kidney disease, or unspecified chronic kidney disease; I50.32 Chronic diastolic (congestive) heart failure; N17.9 Acute kidney failure, unspecified; F43.10 Post-traumatic stress disorder, unspecified; F41.0 Panic disorder [episodic paroxysmal anxiety]; G89.29 Other chronic pain; M54.9 Dorsalgia, unspecified; K21.9 Gastro-esophageal reflux disease without esophagitis; D50.9 Iron deficiency anemia, unspecified; F32.A Depression, unspecified; J44.9 Chronic obstructive pulmonary disease, unspecified; M19.90 Unspecified osteoarthritis, unspecified site; G47.33 Obstructive sleep apnea (adult) (pediatric); E66.01 Morbid (severe) obesity due to excess calories; N18.31 Chronic kidney disease, stage 3a; E11.22 Type 2 diabetes mellitus with diabetic chronic kidney disease; G47.00 Insomnia, unspecified; Z87.442 Personal history of urinary calculi; Z79.899 Other long term (current) drug therapy; Z79.82 Long term (current) use of aspirin; Z79.51 Long term (current) use of inhaled steroids; Z79.4 Long term (current) use of insulin; Z79.891 Long term (current) use of opiate analgesic; Z79.85 Long-term (current) use of injectable non-insulin antidiabetic drugs; Z79.84 Long term (current) use of oral hypoglycemic drugs; Z88.8 Allergy status to other drugs, medicaments and biological substances; Z88.1 Allergy status to other antibiotic agents; Z91.048 Other nonmedicinal substance allergy status; Z87.81 Personal history of (healed) traumatic fracture; Z90.49 Acquired absence of other specified parts of digestive tract; Z98.890 Other specified postprocedural states; Z90.89 Acquired absence of other organs; Z89.512 Acquired absence of left leg below knee; Z68.37 Body mass index [BMI] 37.0-37.9, adult; Z99.89 Dependence on other enabling machines and devices
CPT/HCPCS: 36415; 80048; 80053; 81001; 82947; 83735; 85025; 85027; 87324; 87507; 94762; 99285-25; A9270; J1171; J1815; J1885; J2270; J2405; J2470; J3480; J7050; J7120

== ENCOUNTER → 2025-02-12 | Outpatient (CLI) | payer OTHER ==
[~2025-02-12] MED LIST changes: +AZIT500 PO; +BANATROL PLUS1 EAC1 PO; +BUPRENORPHN-NA1 EACH UD; +DULO60 PO; +IPRAT-ALBUT 0.5-3 ML NEB; +LORA10ER PO; +MAGNESIUM OXID500 MG PO; +NALOXONE HCL4 MG; +NOVOLOG FL100 UNIT/3 SC
[2025-02-12 16:59] LABS: BASOPHILS ABSOLUTE AUTO 0.06 K/mm3 (0.00-0.23); BASOPHILS PERCENT AUTO 1 % (0-2); EOSINOPHILS ABSOLUTE AUTO 0.18 K/mm3 (0.00-0.68); EOSINOPHILS PERCENT AUTO 2 % (0-6); Hematocrit 42.9 % (37.0-53.0); Hemoglobin 14.5 g/dL (13.5-17.5); IMMATURE GRAN ABSOLUTE AUTO 0.02 K/mm3 (0.00-0.10); IMMATURE GRAN PERCENT AUTO 0 % (0-1); LYMPHOCYTES ABSOLUTE AUTO 1.86 K/mm3 (0.84-5.20); LYMPHOCYTES PERCENT AUTO 20 % (21-46); MONOCYTES ABSOLUTE AUTO 0.71 K/mm3 (0.16-1.47); MONOCYTES PERCENT AUTO 8 % (4-13); Mean Corpuscular HGB Conc 33.8 g/dL (31.5-36.5); Mean Corpuscular Volume 88 fL (80-100); NEUTROPHILS ABSOLUTE AUTO 6.34 K/mm3 (1.96-9.15); NEUTROPHILS PERCENT AUTO 69 % (41-73); NRBC ABSOLUTE 0.00 K/mm3 (0.00-0.02); NRBC Auto 0.0 /100 WBC (0.0-0.2); Platelet Count 340 K/mm3 (150-400); RDW Coefficient Variation 13.0 % (11.7-14.2); RDW Standard Deviation 41.5 fL (35.1-46.3)
[2025-02-12 17:06] LABS: Alanine Aminotransfer (ALT/SGP 26.0 U/L (12-78); Albumin, Blood 3.9 g/dL (3.4-5.0); Albumin/Globulin Ratio 1.0 (0.8-1.8); Anion Gap 12.0 mmol/L (3-11); Aspartate Aminotrans (AST/SGOT 16.0 U/L (12-37); Bilirubin, Total 0.3 mg/dL (0.1-1.0); Blood Urea Nitrogen 22.0 mg/dL (8-24); CO2, Blood 28.0 mmol/L (21-32); Calcium, Blood 9.1 mg/dL (8.5-10.1); Chloride, Blood 105.0 mmol/L (98-108); Creatinine, Blood 1.56 mg/dL (0.60-1.20); Globulin, Blood 3.9 g/dL (2.2-4.0); Glucose, Blood 145.0 mg/dL (70-99); Potassium, Blood 3.9 mmol/L (3.5-5.5); Sodium, Blood 141.0 mmol/L (136-145); Total Protein, Blood 7.8 g/dL (6.4-8.2)
== END | disposition home or self-care (01) ==
LOC: LAB 16:50 → LAB SHORT 16:50
DX: R06.02 Shortness of breath (principal)
CPT/HCPCS: 80053; 84484; 85025